=== PATIENT | female | born 1995 | race Caucasian/White ===

== ENCOUNTER 2017-07-22 16:49 | Inpatient (IN) ==
[2017-07-22] MEDS ORDERED: Ipratropium/Albuterol Neb 3 ML IH SCH (17:00)
[2017-07-22] MEDS ORDERED: Magnesium Sulfate 1 GM in 0.9 % Sodium Chloride 50 ML IVPB ONE (17:00)
[2017-07-22] MEDS ORDERED: methylPREDNISolone 125 MG/2 ML VIAL IVP ONE (17:00)
--- NOTE | 2017-07-22 17:21 | Emergency Department Note ---
Disposition Clinical Impression: Asthma with exacerbation Disposition: Still a Patient Condition: Fair Referrals: Mallory Matos BOTTLING ATTENDANT [Primary Care Provider] - Forms: ED Satisfaction Letter SOB HPI - General Chief Complaint: ED Shortness of Breath/Dyspnea Stated Complaint: KASIE Time Seen by Provider: 07/22/17 16:56 Source: patient Mode of arrival: ambulatory Limitations: no limitations Nursing Notes Reviewed: Yes Vital Signs Reviewed: Yes - History of Present Illness Patient presents to the ED with the chief complaint of "my asthma is acting up. " Patient has a history of asthma, never requiring BiPAP admission or intubation. States she has been sick for the last 3 days with an upper respiratory infection that has now moved down into her chest. States her wheezing got worse today. Has medications at home but has not been using them. Boris and other close family members have been sick as well. Complains of some chest tightness from coughing so much. She is just now starting to have some productive sputum, but had not previously. No history of DVT, PE or malignancy. - Related Data Home Medications Medication Instructions Recorded Confirmed Flovent Hfa 10/23/15 Ventolin Hfa 10/23/15 10/23/15 Allergies Allergy/AdvReac Type Severity Reaction Status Date / Time No Known Allergies Allergy Verified 10/23/15 19:14 All systems ED: reviewed and negative except as stated. Constitutional: Denies: fever ENT ED: Reports: congestion. Denies: throat pain Cardiovascular: Reports: chest pain, dyspnea on exertion Respiratory: Reports: dyspnea Gastrointestinal: Denies: abdominal pain, vomiting Integumentary: Denies: rash Past Medical History - Past Medical History Attestation: Yes The following information was validated with the patient. Source: patient Medical history: Reports: asthma, GERD - Social History Smoking Status: Never smoker Smokeless Tobacco Status: No Alcohol use: Reports: none Drug use: Reports: none Physical Exam - General Limitations: no limitations General appearance: alert, in no apparent distress - Chest Chest inspection: Present: normal inspection, symmetric chest wall rise - Respiratory Respiratory exam: Present: respiratory distress (mild ), wheezes (Throughout all lung mckeon). Absent: normal lung sounds bilaterally - Cardiovascular Cardiovascular exam: Present: normal rhythm, tachycardia, normal heart sounds. Absent: regular rate - Abdominal Exam Abdominal exam: Present: soft, Non-Tender. Absent: tenderness, distention, guarding, rebound, rigidity - Extremities Exam Extremities exam: Present: normal inspection, full ROM. Absent: tenderness, pedal edema - Neurological Exam Neurological exam: Present: alert, oriented X3 - Psychiatric Psychiatric exam: Present: normal affect, normal mood - Skin Skin exam: Present: warm, dry, intact, normal color Course Course Narrative: 22 -year-old female with history of asthma presenting with apparent asthma exacerbation. We will check labs do not steroids, magnesium. Disposition pending. Vital Signs Temperature 98.0 F 07/22/17 16:50 Pulse Rate 154 07/22/17 16:50 Respiratory Rate 26 07/22/17 16:50 Blood Pressure 135/95 07/22/17 16:50 O2 Sat by Pulse Oximetry 88 07/22/17 16:50 Temperature 98.0 F 07/22/17 16:50 Pulse Rate 116 07/22/17 18:17 Respiratory Rate 24 07/22/17 18:17 Blood Pressure 115/80 07/22/17 18:17 O2 Sat by Pulse Oximetry 86 07/22/17 18:17 Oxygen Delivery Oxygen Delivery Nasal Cannula Shortness of Breath/Dyspnea - Medical Records Medical records reviewed: Yes I reviewed the patient's medical records. - Lab Data Lab results reviewed: Yes I reviewed the patient's lab results. Result diagrams: 07/22/17 17:27 07/22/17 17:27 Lab Results 07/22/17 07/22/17 07/22/17 Range/Units 17:27 17:27 17:27 WBC 16.7 H (4.3-11.1) K/mcL RBC 5.31 H (3.82-4.97) M/mcL Hgb 13.9 (11.5-15.4) g/dL Hct 42.8 (35.3-44.9) % MCV 80.6 L (83.0-100.0) fL MCH 26.2 L (28.0-33.3) pg MCHC 32.5 (31.6-35.5) g/dL RDW 14.8 H (11.5-14.5) % Plt Count 257 (140-400) K/mcL MPV 10.6 (9.4-12.4) fL Immature Gran % 0.3 (0-4) % Seg Neutrophils % 83.3 % Lymphocytes % 8.9 % Monocytes % 4.1 % Eosinophils % 3.0 % Basophils % 0.4 % Neutrophils # 13.9 H (1.6-8.9) K/mcL Lymphocytes # 1.5 (0.6-4.6) K/mcL Monocytes # 0.7 (0.0-1.3) K/mcL Eosinophils # 0.5 (0.0-0.6) K/mcL Basophils # 0.1 (0.0-0.2) K/mcL D-Dimer 1092 H (0-500) ng/mLFEU Sodium 139 (136-145) mEq/L Potassium 3.4 L (3.5-4.5) mEq/L Chloride 107 (98-109) mEq/L Carbon Dioxide 23 (19-29) mEq/L BUN 9 (7-20) mg/dL Creatinine 0.66 (0.57-1.11) mg/dL Est GFR ( Amer) > 60 (> 60) Est GFR (Non-Af Amer) > 60 (> 60) BUN/Creatinine Ratio 14 (6-26) Glucose 121 H (70-99) mg/dL Calculated Osmolality 288 (280-300) Calcium 8.8 (8.6-10.8) mg/dL - Radiology Data Radiology results reviewed: Yes I reviewed the patient's radiology results. Chest X-Ray 07/22/17 17:04 IMPRESSION: No acute disease. D/ / Susu Barrera Cha, MD / Susu Barrera Cha, MD Interpreting Provider: Susu Barrera Cha, MD - EKG Data EKG attestation: Yes I reviewed and interpreted this EKG. EKG results narrative: Sinus tach, rate 136, DC interval 141, QRS 96, QTC 377, normal axis, no acute ischemic changes S.B.A.R. - S.B.A.R. Situation: Demographics, MOA Background: Presenting Complaint, Relevant PMH, Meds, & Allergies Assessment: Vital Signs, Course and respsone to treatment, Exam Concerns, Patient/Family Expectation, Pertinant Lab Results, Outstanding Labs Recommendation: Barrier(s) to disposition, Recommendation based on pending studies, treatments, or consults S.B.A.R. Report Given to: Wilman Kilgore Repor Time: 18:44
[2017-07-22 17:36] LABS: Basophils # 0.1 K/mcL (0.0-0.2); Basophils % 0.4 %; Eosinophils # 0.5 K/mcL (0.0-0.6); Hematocrit 42.8 % (35.3-44.9); Hemoglobin 13.9 g/dL (11.5-15.4); Immature Granulocytes % 0.3 % (0-4); Lymphocytes # 1.5 K/mcL (0.6-4.6); Lymphocytes % 8.9 %; Mean Corpuscular HGB Conc 32.5 g/dL (31.6-35.5); Mean Corpuscular Hemoglobin 26.2 pg (28.0-33.3); Mean Corpuscular Volume 80.6 fL (83.0-100.0); Mean Platelet Volume 10.6 fL (9.4-12.4); Monocytes # 0.7 K/mcL (0.0-1.3); Monocytes % 4.1 %; Neutrophils # 13.9 K/mcL (1.6-8.9); Platelet Count 257 K/mcL (140-400); Red Blood Count 5.31 M/mcL (3.82-4.97); Red Cell Distribution Width 14.8 % (11.5-14.5); Segmented Neutrophils % 83.3 %
[2017-07-22 17:48] LABS: BUN/Creatinine Ratio 14 (6-26); Blood Urea Nitrogen 9 mg/dL (7-20); Calcium 8.8 mg/dL (8.6-10.8); Carbon Dioxide 23 mEq/L (19-29); Chloride 107 mEq/L (98-109); Glucose 121 mg/dL (70-99); Osmolality,Calculated 288 (280-300); Potassium 3.4 mEq/L (3.5-4.5); Sodium 139 mEq/L (136-145); eGFR For African Americans > 60 (> 60); eGFR For Non-African Americans > 60 (> 60)
--- NOTE | 2017-07-22 18:04 | Emergency Department Note ---
START Narrative - START START: I examined this patient and my medical decision-making was reviewed with the Resident Physician. I agree with the documented findings, disposition and treatment plan as described except to the extent set forth below. 22 year old female with HX of asthma presents to the ED with complaitns of dyspnea and has had breathign trestments at home with a tachycardia with a rate from the 120-140s sinus. Patient has wheezing in all mckeon. We will do breathing tremtents. D-dimer is postive an we will obtain a CTA chest to r/o PE.
[2017-07-22] MEDS ORDERED: 0.9 % Sodium Chloride 1,000 ML IVC ONE (18:19)
[2017-07-22] MEDS ORDERED: Ondansetron 4 MG/2 ML VIAL IVP ONE (18:20)
[2017-07-22] MEDS ORDERED: Albuterol 2.5 MG/3 ML NEBULIZER IH ONE (19:16)
--- NOTE | 2017-07-22 19:24 | Emergency Department Note ---
Disposition Clinical Impression: Hypoxia Asthma with exacerbation Qualifiers: Asthma severity: moderate Asthma persistence: persistent Qualified Code(s): J45.41 - Moderate persistent asthma with (acute) exacerbation Pneumonia Qualifiers: Pneumonia type: due to Pneumococcus Laterality: right Lung location: lower lobe of lung Qualified Code(s): J13 - Pneumonia due to Streptococcus pneumoniae Disposition: Admitted As Inpatient Condition: Undetermined SOB HPI - General Chief Complaint: ED Shortness of Breath/Dyspnea Stated Complaint: KASIE Time Seen by Provider: 07/22/17 16:56 Source: patient Mode of arrival: ambulatory Limitations: no limitations Nursing Notes Reviewed: Yes Vital Signs Reviewed: Yes - History of Present Illness 22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 The patient has a history of asthma. She states she has had an upper respiratory like infection over the course of the past 3-4 days with everybody at home with similar complaints. She states that she has not been compliant with her asthma medications and states that she became short of breath over the course of the past 48 hours. The patient arrives to the emergency department very tachypneic and was mildly hypoxic with an O2 saturation of 89% on 2 L nasal cannula. At that time the patient had a full workup here in the emergency department with labs and pending CTA of the chest for elevated d- dimer. The patient was noted to have hypoxia with some relief of her symptoms with 3 DuoNeb as well as IV magnesium. The patient all show received steroids. The patient is still mildly tachypneic in the room with some wheezing on auscultation during evaluation after signout. The patient is on oxygen mask with an O2 saturation of 94% at this time. She is able to speak in full sentences without any accessory muscle use. She denies any other complaints at this time other than just generally feeling tired. Pt Subjective Complaint: shortness of breath Onset (ago): day(s) (2) Known history of: asthma Treatment prior to arrival: oxygen Cough present: Yes Sputum production: No - Related Data Home oxygen amount: none Home Medications Medication Instructions Recorded Confirmed Flovent Hfa 10/23/15 Ventolin Hfa 10/23/15 10/23/15 Ranitidine HCl [Acid Ingot Passer] 150 mg PO HS 07/22/17 07/22/17 Allergies Allergy/AdvReac Type Severity Reaction Status Date / Time No Known Allergies Allergy Verified 10/23/15 19:14 All systems ED: reviewed and negative except as stated. Constitutional: Denies: fever ENT ED: Reports: congestion. Denies: throat pain Cardiovascular: Reports: chest pain, dyspnea on exertion Respiratory: Reports: cough, dyspnea, wheezes. Denies: sputum production Gastrointestinal: Denies: abdominal pain, vomiting Integumentary: Denies: rash Past Medical History - Past Medical History Attestation: Yes The following information was validated with the patient. Source: patient Medical history: Reports: asthma, GERD - Social History Smoking Status: Never smoker Smokeless Tobacco Status: No Alcohol use: Reports: none Drug use: Reports: none Physical Exam - General Limitations: no limitations General appearance: alert, in no apparent distress - Head Head exam: atraumatic, normocephalic, normal inspection - Eye Eye exam: Present: normal appearance, PERRL, EOMI - ENT ENT exam: normal exam, normal oropharynx, mucous membranes moist - Neck Neck exam: Present: normal inspection, full ROM, trachea midline - Chest Chest inspection: Present: normal inspection, symmetric chest wall rise - Respiratory Respiratory exam: Present: wheezes. Absent: respiratory distress, accessory muscle use - Cardiovascular Cardiovascular exam: Present: normal rhythm, tachycardia, normal heart sounds - Abdominal Exam Abdominal exam: Present: soft, Non-Tender. Absent: tenderness, distention, guarding, rebound, rigidity - Extremities Exam Extremities exam: Present: normal inspection, full ROM. Absent: tenderness, pedal edema Course Vital Signs Temperature 98.0 F 07/22/17 16:50 Pulse Rate 154 07/22/17 16:50 Respiratory Rate 26 07/22/17 16:50 Blood Pressure 135/95 07/22/17 16:50 O2 Sat by Pulse Oximetry 88 07/22/17 16:50 Temperature 98.3 F 07/23/17 03:21 Pulse Rate 115 07/23/17 03:21 Respiratory Rate 20 07/23/17 04:20 Blood Pressure 136/83 07/23/17 04:20 O2 Sat by Pulse Oximetry 91 07/23/17 04:20 Oxygen Delivery Oxygen Delivery Oximizer Shortness of Breath/Dyspnea - MDM Narrative Medical decision making narrative: Workup here in the emergency department demonstrates findings consistent with multifocal pneumonia on CTA of the patient's chest. The patient was noted to be hypoxic multiple times in the emergency Department has required oxygen mask. We will begin the patient on Levaquin and Rocephin. The patient will be admitted to the hospitalist service, accepted by Dr. Pedraza. Hospitalist requested an EKG. We will perform. We will notify her of any major abnormalities noted. - Lab Data Lab results reviewed: Yes I reviewed the patient's lab results. Result diagrams: 07/22/17 17:27 07/22/17 17:27 Lab Results 07/22/17 07/22/17 07/22/17 Range/Units 17:27 17:27 17:27 WBC 16.7 H (4.3-11.1) K/mcL RBC 5.31 H (3.82-4.97) M/mcL Hgb 13.9 (11.5-15.4) g/dL Hct 42.8 (35.3-44.9) % MCV 80.6 L (83.0-100.0) fL MCH 26.2 L (28.0-33.3) pg MCHC 32.5 (31.6-35.5) g/dL RDW 14.8 H (11.5-14.5) % Plt Count 257 (140-400) K/mcL MPV 10.6 (9.4-12.4) fL Immature Gran % 0.3 (0-4) % Seg Neutrophils % 83.3 % Lymphocytes % 8.9 % Monocytes % 4.1 % Eosinophils % 3.0 % Basophils % 0.4 % Neutrophils # 13.9 H (1.6-8.9) K/mcL Lymphocytes # 1.5 (0.6-4.6) K/mcL Monocytes # 0.7 (0.0-1.3) K/mcL Eosinophils # 0.5 (0.0-0.6) K/mcL Basophils # 0.1 (0.0-0.2) K/mcL D-Dimer 1092 H (0-500) ng/mLFEU Sodium 139 (136-145) mEq/L Potassium 3.4 L (3.5-4.5) mEq/L Chloride 107 (98-109) mEq/L Carbon Dioxide 23 (19-29) mEq/L BUN 9 (7-20) mg/dL Creatinine 0.66 (0.57-1.11) mg/dL Est GFR ( Amer) > 60 (> 60) Est GFR (Non-Af Amer) > 60 (> 60) BUN/Creatinine Ratio 14 (6-26) Glucose 121 H (70-99) mg/dL Calculated Osmolality 288 (280-300) Calcium 8.8 (8.6-10.8) mg/dL Troponin I (0-0.03) ng/mL Serum , Qual (Negative) 07/22/17 07/22/17 Range/Units 17:27 17:27 WBC (4.3-11.1) K/mcL RBC (3.82-4.97) M/mcL Hgb (11.5-15.4) g/dL Hct (35.3-44.9) % MCV (83.0-100.0) fL MCH (28.0-33.3) pg MCHC (31.6-35.5) g/dL RDW (11.5-14.5) % Plt Count (140-400) K/mcL MPV (9.4-12.4) fL Immature Gran % (0-4) % Seg Neutrophils % % Lymphocytes % % Monocytes % % Eosinophils % % Basophils % % Neutrophils # (1.6-8.9) K/mcL Lymphocytes # (0.6-4.6) K/mcL Monocytes # (0.0-1.3) K/mcL Eosinophils # (0.0-0.6) K/mcL Basophils # (0.0-0.2) K/mcL D-Dimer (0-500) ng/mLFEU Sodium (136-145) mEq/L Potassium (3.5-4.5) mEq/L Chloride (98-109) mEq/L Carbon Dioxide (19-29) mEq/L BUN (7-20) mg/dL Creatinine (0.57-1.11) mg/dL Est GFR ( Amer) (> 60) Est GFR (Non-Af Amer) (> 60) BUN/Creatinine Ratio (6-26) Glucose (70-99) mg/dL Calculated Osmolality (280-300) Calcium (8.6-10.8) mg/dL Troponin I 0.01 (0-0.03) ng/mL Serum , Qual Negative (Negative) - Radiology Data Radiology results reviewed: Yes I reviewed the patient's radiology results. - EKG Data EKG attestation: Yes I reviewed and interpreted this EKG. EKG results narrative: EKG #1 performed at 1704 Heart rate 1 36 bpm. MA interval 141 ms. QTC 377 ms. Sinus tachycardia. No ST elevation or ST depression noted. No acute changes noted. EKG #2: Heart rate 1 24 bpm. MA interval 147 ms. QTC 49 ms. Sinus tachycardia. Laceration ST depression noted. No acute changes noted other than sinus tachycardia. Attestation Statement - Attestation Attestation: I examined this patient and my medical decision-making was reviewed with the Resident Physician. I agree with the documented findings, disposition and treatment plan as described except to the extent set forth below. Patient to the ED with shortness of breath. Signed out pending CTA chest. CTA negative for PE but she does have a FOCAL pneumonia. She is hypoxic. Admitted to medicine. 35 minutes of critical care exclusive several procedures.
[2017-07-22] MEDS ORDERED: Levofloxacin 750 MG/150 ML 750 MG/150 ML BAG IVPB STA (19:44)
[2017-07-22] MEDS ORDERED: cefTRIAXone 1,000 MG in Water for inj. (sterile) 10 ML IVP ONE (19:44)
[2017-07-22] MEDS ORDERED: Naloxone 0.4 MG/ML INJ IVP PRN (20:53)
[2017-07-22] MEDS ORDERED: Ipratropium/Albuterol Neb 3 ML IH PRN (20:57)
--- NOTE | 2017-07-22 21:05 | Internal Med History&Physical ---
Date of Encounter: 07/22/17 Time of Encounter: 20:00 Assessment and Plan (1) DVT prophylaxis Current visit: Yes Status: Acute Heparin subcutaneously (2) BARON on CPAP Current visit: Yes Status: Acute Continue CPAP during night (3) Asthma with exacerbation Current visit: Yes Status: Acute Patient has history of asthma. With daily attack. Without about once a week night attended. Consider mild to moderate persistent asthma. Patient has asthma exacerbation this time - Place patient on antibiotic, steroid, and bronchodilator. - Add Symbicort twice a day - Closely monitor patient Qualifiers: Asthma severity: moderate Asthma persistence: persistent Qualified Code(s ): J45.41 - Moderate persistent asthma with (acute) exacerbation (4) Hypoxia Current visit: Yes Status: Acute Due to pneumonia and asthma exacerbation. Oxygen supportive treatment. Continuous pulse oximetry monitoring. Treat underlying disease. (5) Pneumonia Current visit: Yes Status: Acute CTA shows right lower lobe pneumonia. Patient has elevated WBC. Consider community-acquired pneumonia. Will treat patient with Levaquin. Follow-up of blood and sputum culture Qualifiers: Pneumonia type: due to Pneumococcus Laterality: right Lung location: lower lobe of lung Qualified Code(s): J13 - Pneumonia due to Streptococcus pneumoniae Internal Medicine - H&P: HPI Chief complaint: Shortness of breath Admitted From: Home Plans for Post Hospital Care: Home History of present illness: Ms. Sinha is a 22 year old female with history of asthma and BARON present to ER for shortness of breath since yesterday. Patient said she started to have stuffed nose since yesterday. She started to have shortness of breath from today and have to quit from work today. Patient tried inhaler but it does not work. Patient denies sore throat, fever, nausea, vomiting, or chest pain. She has cough with yellowish sputum. Patient has a history of asthma without history of hospitalization or intubation. She was treated with magnesium, DuoNeb, Levaquin and Solumendrol in emergency room. Her symptoms has improved after treatment. Past Med Surg Social Fam HX - Past Medical History Medical history: asthma, GERD - Social History Smoking Status: Never smoker Smokeless Tobacco Status: No Alcohol use: none Drug use: none - Family History Mother History Unknown: Yes Internal Medicine - H&P: Meds Flovent Hfa 10/23/15 [History] Ventolin Hfa 10/23/15 [History] 3 Allergy/AdvReac Type Severity Reaction Status Date / Time No Known Allergies Allergy Verified 10/23/15 19:14 All Systems PM: A 10-system review of systems was performed and is negative for pertinent findings except as documented above in the HPI. - Constitutional Vitals: Temp Pulse Resp BP Pulse Ox 98.0 F 130 24 132/59 90 07/22/17 16:50 07/22/17 20:21 07/22/17 20:21 07/22/17 20:21 07/22/17 20:21 General appearance: Present: mild distress, A&O X 3, answers questions appropriately - Head Head exam: Present: atraumatic, normocephalic - Eye Eye exam: Present: PERRL, conjuntiva pink, sclera anicteric Pupils: Present: PERRL - Neck Neck exam general surgery: Present: supple, trachea midline. Absent: lymphadenopathy - Respiratory Respiratory exam: Present: CTAB. Absent: accessory muscle use, rales, rhonchi, wheezes - Cardiovascular Cardiovascular exam: Present: RRR, +S1, +S2. Absent: diastolic murmur, gallop, rubs, systolic murmur - GI/Abdominal GI/Abdominal exam: Present: normal bowel sounds, soft, no peritoneal signs. Absent: distended, tenderness - Extremities Exam Extremities exam: Present: warm, radial pulses palpable and symmetrical. Absent : calf tenderness, cyanotic, pedal edema - Neurological Exam Neurological exam: Present: CN II-XII intact, oriented X3, no focal deficits. Absent: pronater drift, facial droop, speech deficit - Skin Skin exam: Present: dry, intact Internal Med - H&P Results - Labs CBC & Chem 7: 07/22/17 17:27 07/22/17 17:27 - EKG Data -: EKG Interpreted by Myself EKG shows normal: sinus rhythm Rate: tachycardia
[2017-07-22] MEDS: Ipratropium/Albuterol Neb 3 ML IH SCH (22:38)
[2017-07-22] MEDS: Budesonide/Formoterol 160/4.5 MDI IH SCH (22:38)
[2017-07-22] MEDS: 0.9 % Sodium Chloride 1,000 ML IVC SCH (23:09)
[2017-07-22] MEDS: methylPREDNISolone 125 MG/2 ML VIAL IVP SCH (23:11)
[2017-07-22] MEDS: Famotidine 20 MG TABLET PO SCH (23:58)
[2017-07-23] MEDS ORDERED: methylPREDNISolone 125 MG/2 ML VIAL IM SCH
[2017-07-23] MEDS: Ipratropium/Albuterol Neb 3 ML IH SCH ×5 (04:20→20:58)
[2017-07-23] MEDS: 0.9 % Sodium Chloride 1,000 ML IVC SCH (04:22)
[2017-07-23] MEDS: *HR* Heparin 5,000 UNIT/ML VIAL SQ SCH ×2 (06:20→17:10)
[2017-07-23] MEDS: methylPREDNISolone 125 MG/2 ML VIAL IVP SCH ×4 (06:20→23:25)
[2017-07-23] MEDS: Acetaminophen 325 MG TABLET PO PRN ×2 (06:21→14:04)
[2017-07-23 06:31] LABS: Basophils % 0.1 %; Hematocrit 42.8 % (35.3-44.9); Hemoglobin 13.5 g/dL (11.5-15.4); Immature Granulocytes % 0.8 % (0-4); Mean Corpuscular HGB Conc 31.5 g/dL (31.6-35.5); Mean Corpuscular Hemoglobin 26.2 pg (28.0-33.3); Mean Corpuscular Volume 83.1 fL (83.0-100.0); Mean Platelet Volume 11.5 fL (9.4-12.4); Monocytes # 0.2 K/mcL (0.0-1.3); Monocytes % 1.7 %; Neutrophils # 12.9 K/mcL (1.6-8.9); Platelet Count 271 K/mcL (140-400); Red Blood Count 5.15 M/mcL (3.82-4.97); Red Cell Distribution Width 15.1 % (11.5-14.5); Segmented Neutrophils % 90.4 %
[2017-07-23 06:51] LABS: BUN/Creatinine Ratio 14 (6-26); Blood Urea Nitrogen 9 mg/dL (7-20); Calcium 8.9 mg/dL (8.6-10.8); Carbon Dioxide 22 mEq/L (19-29); Chloride 112 mEq/L (98-109); Glucose 163 mg/dL (70-99); Magnesium 2.2 mg/dL (1.6-2.6); Osmolality,Calculated 296 (280-300); Potassium 4.4 mEq/L (3.5-4.5); Sodium 142 mEq/L (136-145); eGFR For African Americans > 60 (> 60); eGFR For Non-African Americans > 60 (> 60)
[2017-07-23] MEDS ORDERED: Albuterol 2.5 MG/3 ML NEBULIZER IH SCH ×2 (10:00→12:00)
--- NOTE | 2017-07-23 10:08 | Internal Med Progress Note ---
<Rogerio Lovett - Last Filed: 07/23/17 12:34> Date of Encounter: 07/23/17 Time of Encounter: 07:30 - Assessment and plan (1) Pneumonia Current Visit: Yes Status: Acute Assessment and plan: Viral PCR positive; placed patient on droplet precautions and informed RN Continue Levaquin daily pending cultures sputum culture pending; may tailor antibiotics pending sensitivity report started patient on Mucinex start/continue oxygen, nebulizer treatments, incentive spirometry, and flutter valve Qualifiers: Pneumonia type: due to Pneumococcus Laterality: right Lung location: lower lobe of lung Qualified Code(s): J13 - Pneumonia due to Streptococcus pneumoniae (2) Asthma with exacerbation Current Visit: Yes Status: Acute Assessment and plan: History of severe asthma with frequent attacks patient is inconsistently compliant with medical regimen; she is also exposed to triggers such as pet dander and cigarette smoke has scattered inspiratory and expiratory wheezes on exam; is not in current apparent respiratory distress on aforementioned oxygen supplementation rescheduled nebulizer treatments to albuterol Q2 PRN and duo q4 scheduled for the time being spoke with respiratory therapy; will initiate incentive spirometry and flutter valve Qualifiers: Asthma severity: moderate Asthma persistence: persistent Qualified Code(s ): J45.41 - Moderate persistent asthma with (acute) exacerbation (3) Hypoxia Current Visit: Yes Status: Acute Assessment and plan: Patient continues to be hypoxic requiring high flow oxygen by nasal cannula plans as above (4) BARON on CPAP Current Visit: Yes Status: Chronic Assessment and plan: CPAP at night (5) DVT prophylaxis Current Visit: Yes Status: Acute Assessment and plan: Continue subcutaneous heparin - Time Spent With Patient less than 15 minutes - Subjective Interval history: Continues to be hypoxic requiring 12 L flow oxygen via nasal cannula to sustain saturations within the 90s. At bedside, patient is in no overt respiratory distress. Patient speaks whole sentences without any interruptions. No fevers overnight. No acute complaints. Respiratory infection panel and sputum culture are pending. Will expand approach towards patient's respiratory status. - Constitutional Vitals: Temp Pulse Resp BP Pulse Ox 98.1 F 100 22 152/92 95 07/23/17 07:28 07/23/17 07:33 07/23/17 07:28 07/23/17 07:28 07/23/17 07:28 General appearance: Present: mild distress, A&O X 3, answers questions appropriately Exam: CONSTITUTIONAL: Alert and oriented X3, well-nourished, well appearing, in no apparent distress HEAD: Normocephalic; atraumatic. EYES: PERRL, no scleral icterus. NOSE: The nose is normal in appearance without rhinorrhea RESP: on high flow oxygen by nasal cannula; in no apparent respiratory distress ; does have inspiratory and expiratory wheezes throughout lung mckeon without evidence of consolidation on auscultation CARD: Regular rhythm, without murmurs, rub or gallop ABD: Non-distended; non-tender, soft,without rigidity, rebound or guarding SKIN: Normal for age and race; warm and dry; no apparent lesions Internal Medicine: Result - Labs CBC & Chem 7: 07/23/17 05:42 07/23/17 05:42 Labs: Short CBC 07/23/17 Range/Units 05:42 WBC 14.3 H (4.3-11.1) K/mcL Hgb 13.5 (11.5-15.4) g/dL Hct 42.8 (35.3-44.9) % Plt Count 271 (140-400) K/mcL Neutrophils # 12.9 H (1.6-8.9) K/mcL BMP 07/23/17 05:42 Sodium 142 Potassium 4.4 D Chloride 112 H Carbon Dioxide 22 BUN 9 Creatinine 0.65 Glucose 163 H Calcium 8.9 - ABG Interpretation ABG results: PT/INR, D-dimer D-Dimer 1092 ng/mLFEU (0-500) H 07/22/17 17:27 Consult Discharge Plan - Plan Referrals: Mallory Matos B[employer] GUARD [Primary Care Provider] - <Jonatan Christopher - Last Filed: 07/23/17 17:01> Date of Encounter: 07/23/17 - Assessment and plan (1) Acute respiratory failure with hypoxia Current Visit: Yes Status: Acute Assessment and plan: Weaning oxygen as able. Remains on high flow mask. (2) Asthma with exacerbation Current Visit: Yes Status: Acute Qualifiers: Asthma severity: moderate Asthma persistence: persistent Qualified Code(s ): J45.41 - Moderate persistent asthma with (acute) exacerbation (3) Pneumonia Current Visit: Yes Status: Acute Qualifiers: Pneumonia type: due to Pneumococcus Laterality: right Lung location: lower lobe of lung Qualified Code(s): J13 - Pneumonia due to Streptococcus pneumoniae (4) BARON on CPAP Current Visit: Yes Status: Chronic - Time Spent With Patient My time was 38min - Constitutional Vitals: Temp Pulse Resp BP Pulse Ox 98.7 F 124 20 158/79 90 07/23/17 15:18 07/23/17 15:18 07/23/17 16:38 07/23/17 15:18 07/23/17 16:38 Internal Medicine: Result - Labs CBC & Chem 7: 07/23/17 05:42 07/23/17 05:42 Labs: Short CBC 07/23/17 Range/Units 05:42 WBC 14.3 H (4.3-11.1) K/mcL Hgb 13.5 (11.5-15.4) g/dL Hct 42.8 (35.3-44.9) % Plt Count 271 (140-400) K/mcL Neutrophils # 12.9 H (1.6-8.9) K/mcL BMP 07/23/17 05:42 Sodium 142 Potassium 4.4 D Chloride 112 H Carbon Dioxide 22 BUN 9 Creatinine 0.65 Glucose 163 H Calcium 8.9 - ABG Interpretation ABG results: PT/INR, D-dimer D-Dimer 1092 ng/mLFEU (0-500) H 07/22/17 17:27 - Attending Attestation I examined this patient and my medical decision-making was reviewed with the Resident Physician on 07/23/17. I agree with the documented findings, disposition and treatment plan as described except to the extent set forth below. Ms Sinha is currently in observation for multifocal pneumonia and asthma exacerbation. Her RIP is positive for rhinovirus. She is moderate to high risk due to potential for worsening respiratory status. Ms Sinha is having trouble sitting up due to congestion. Having a lot of coughing and sinus drainage. RIP has rhinovirus. She remains on high flow oxygen. No fever or chills at this time. Eating OK. No GI issues. Exam Alert. Mod distress due to coughing. Mucus membranes dry Heart tachy and regular Lungs with diffuse insp and exp wheeze Abd soft No edema I/P 1. Hypoxia 2. Asthma 3. Viral pneumonia Further diagnoses and plan as above.
[2017-07-23] MEDS ORDERED: Albuterol 2.5 MG/3 ML NEBULIZER IH PRN (10:21)
[2017-07-23 10:40] LABS: Adenovirus Not Detected (Not Detect); Bordetella Pertussis Not Detected (Not Detect); Chlamydophila pneumoniae Not Detected (Not Detect); Coronavirus 229E Not Detected (Not Detect); Coronavirus HKU1 Not Detected (Not Detect); Coronavirus NL63 Not Detected (Not Detect); Coronavirus OC43 Not Detected (Not Detect); Human Metapneumovirus Not Detected (Not Detect); Human Rhinovirus/Enterovirus ***DETECTED*** (Not Detect); Influenza A Subtype 2009 H1 Not Detected (Not Detect); Influenza A Untypeable Not Detected (Not Detect); Influenza B Not Detected (Not Detect); Mycoplasma pneumoniae Not Detected (Not Detect); Parainfluenza Virus 1 Not Detected (Not Detect); Parainfluenza Virus 2 Not Detected (Not Detect); Parainfluenza Virus 3 Not Detected (Not Detect); Parainfluenza Virus 4 Not Detected (Not Detect); Respiratory Syncytial Virus Not Detected (Not Detect)
[2017-07-23] MEDS: Budesonide/Formoterol 160/4.5 MDI IH SCH ×2 (10:40→20:58)
--- NOTE | 2017-07-23 17:49 | Electrocardiograph Report ---
[address] [address] Test Date: 2017-07-22 Pat Name: Teagan Sinha Department: 104 Room: 01 Gender: F Claims Adjuster Supervisor: LOTTIE : 1995 Requested By: Kristian Stovall Order Number: [id number] Reading MD: Magdalena Erickson Measurements Intervals [place] Rate: 124 P: 62 PA: 147 QRS: 54 QRSD: 98 T: 30 QT: 335 QTc: 409 Interpretive Statements SINUS TACHYCARDIA ABNORMAL RHYTHM ECG Electronically Signed On 07-23-2017 17:47:21 EST by Magdalena Erickson
--- NOTE | 2017-07-23 20:01 | Electrocardiograph Report ---
[address] [address] Test Date: 2017-07-22 Pat Name: Teagan Sinha Department: 104 Room: 2N01 Gender: F Business Loan Processor: TI : 1995 Requested By: Jonatan Christopher Order Number: [id number] Reading MD: Michoacano Mckay MD Measurements Intervals [place] Rate: 136 P: 75 NC: 141 QRS: 76 QRSD: 96 T: 47 QT: 297 QTc: 377 Interpretive Statements SINUS TACHYCARDIA Electronically Signed On 07-23-2017 20:00:20 EST by Michoacano Mckay MD
[2017-07-23] MEDS: Levofloxacin 750 MG/150 ML 750 MG/150 ML BAG IVPB SCH (20:18)
[2017-07-23] MEDS: Famotidine 20 MG TABLET PO SCH (20:19)
[2017-07-24] MEDS: Ipratropium/Albuterol Neb 3 ML IH SCH ×7 (00:46→23:14)
[2017-07-24] MEDS: methylPREDNISolone 125 MG/2 ML VIAL IVP SCH ×4 (06:10→23:56)
[2017-07-24] MEDS: *HR* Heparin 5,000 UNIT/ML VIAL SQ SCH ×2 (06:11→16:50)
[2017-07-24] MEDS: Budesonide/Formoterol 160/4.5 MDI IH SCH ×2 (08:27→20:13)
--- NOTE | 2017-07-24 08:37 | Internal Med Progress Note ---
<Daniel Berry - Last Filed: 07/24/17 13:56> Date of Encounter: 07/24/17 Time of Encounter: 08:00 - Assessment and plan (1) Asthma with exacerbation Current Visit: Yes Status: Acute Assessment and plan: Patient has known history of asthma with frequent attacks. Reports inconsistant compliance with medical regimen. Uses albuterol inhaler at home. Exposed to triggers like pet dander and cigarette smoke. Patient reported no respiratory distress this morning. Plan: -High flow O2 via NC -Albuterol neb 2.5 Q2 PRN -DuoNeb 3 mL Q4 PRN -Incentive spirometry and flutter valve Qualifiers: Asthma severity: moderate Asthma persistence: persistent Qualified Code(s ): J45.41 - Moderate persistent asthma with (acute) exacerbation (2) Pneumonia Current Visit: Yes Status: Acute Assessment and plan: Chest CTA (07/22/17): Demonstrated multifocal pneumonia predominantly involving RLL. Viral PCR (07/23/17): positive for entero/rhino. Patient on droplet precautions. Sputum culture is pending; may adjust antibiotics depending on sensitivity report. WC on admission was 16.7; decreased to 14.3 on 07/23/17. Plan: -IV Levaquin 750 Q24; started on 07/23/17 (day 2 of abx) -Mucinex 600 mg PO BID PRN. Qualifiers: Pneumonia type: due to Pneumococcus Laterality: right Lung location: lower lobe of lung Qualified Code(s): J13 - Pneumonia due to Streptococcus pneumoniae (3) Hypoxia Current Visit: Yes Status: Acute Assessment and plan: Patient's O2 saturation this morning was 90. -High flow oxygen via nasal cannula. (4) DVT prophylaxis Current Visit: Yes Status: Acute Assessment and plan: Heparin 5000 sq Q12. (5) BARON on CPAP Current Visit: Yes Status: Chronic Assessment and plan: Patient on CPAP at night - Subjective Interval history: Patient was seen and examined at bedside this morning. Patient reports that her breathing has improved since admission. She denies any productive cough. She had no difficulty sleeping last night. Her only complaints morning is that she has some chest pain on deep inspiration. She currently denies any fever, chills, nasal discharge, or shortness of breath. Patient is currently on high flow oxygen via nasal cannula. - Constitutional Vitals: Temp Pulse Resp BP Pulse Ox 98.1 F 91 16 138/84 90 07/24/17 06:56 07/24/17 07:41 07/24/17 08:27 07/24/17 06:56 07/24/17 08:27 General appearance: Present: A&O X 3, no acute distress, answers questions appropriately - Head Head exam: Present: atraumatic, normal inspection, normocephalic - ENT ENT exam: Present: mucous membranes moist, normal exam - Neck Neck exam general surgery: Present: full ROM, normal inspection - Respiratory Respiratory exam: Present: wheezes. Absent: rales, rhonchi, stridor, tachypnea Additional comments: There is mild wheezing present on inspiration, predominantly in the upper lung mckeon. - Expanded Respiratory Exam Location: wheezes: Left, Right, Upper - Cardiovascular Cardiovascular exam: Present: RRR, +S1, +S2. Absent: diastolic murmur, irregular rhythm, JVD, tachycardia - GI/Abdominal GI/Abdominal exam: Present: normal bowel sounds, soft. Absent: tenderness - Psychiatric Psychiatric exam: Present: normal affect, normal mood - Skin Skin exam: Present: dry, intact Internal Medicine: Result - Labs CBC & Chem 7: 07/24/17 08:44 07/23/17 05:42 - ABG Interpretation ABG results: PT/INR, D-dimer D-Dimer 1092 ng/mLFEU (0-500) H 07/22/17 17:27 Consult Discharge Plan - Plan Referrals: Mallory Matos, [facility] [facility] [Primary Care Provider] - 08/02/17 9:00 am <Jonatan Christopher - Last Filed: 07/24/17 15:50> Date of Encounter: 07/24/17 - Assessment and plan (1) Acute respiratory failure with hypoxia Current Visit: Yes Status: Acute Assessment and plan: Wean oxygen as tolerated (2) Asthma with exacerbation Current Visit: Yes Status: Acute Qualifiers: Asthma severity: moderate Asthma persistence: persistent Qualified Code(s ): J45.41 - Moderate persistent asthma with (acute) exacerbation (3) Pneumonia Current Visit: Yes Status: Acute Qualifiers: Pneumonia type: due to unspecified organism Laterality: right Lung location: lower lobe of lung Qualified Code(s): J18.1 - Lobar pneumonia, unspecified organism (4) BARON on CPAP Current Visit: Yes Status: Chronic (5) Morbid obesity with BMI of 45.0-49.9, adult Current Visit: Yes Status: Chronic (6) Second hand smoke exposure Current Visit: Yes Status: Chronic - Constitutional Vitals: Temp Pulse Resp BP Pulse Ox 98.2 F 131 20 156/77 94 07/24/17 11:22 07/24/17 11:36 07/24/17 11:22 07/24/17 11:22 07/24/17 11:22 Internal Medicine: Result - Labs CBC & Chem 7: 07/24/17 08:44 07/23/17 05:42 - ABG Interpretation ABG results: PT/INR, D-dimer D-Dimer 1092 ng/mLFEU (0-500) H 07/22/17 17:27 - Attending Attestation I examined this patient and my medical decision-making was reviewed with the Resident Physician on 07/24/17. I agree with the documented findings, disposition and treatment plan as described except to the extent set forth below. Ms Sinha is currently admitted for acute hypoxia with asthma exacerbation and pneumonia (probably viral). She remains moderate to high risk due to potential for worsening respiratory status. Ms Sinha is a little better today. She is coughing a lot still and is dyspneic with movement. Aerosols help but are making her more tachycardic. No fever or chills now. No CP. Still with a lot of sinus congestion. No purulent sputum. RIP with adenovirus. Exam Alert. Mod resp distress with movement Mucus membranes dry Heart tachy and regular Lungs with diffuse end exp wheeze - somewhat better than yesterday Abd soft No edema I/P 1. Hypoxia - still on high flow oxygen. Weaning as able but still quite dyspneic. 2. Asthma - persistent. Continue steroids, aerosols, oxygen and supportive care 3. Pneumonia - most likely viral as RIP positive. Further diagnoses and plan as above.
[2017-07-24 08:51] LABS: Basophils % 0.1 %; Hematocrit 43.3 % (35.3-44.9); Hemoglobin 13.4 g/dL (11.5-15.4); Immature Granulocytes % 1.1 % (0-4); Lymphocytes # 2.2 K/mcL (0.6-4.6); Lymphocytes % 9.7 %; Mean Corpuscular HGB Conc 30.9 g/dL (31.6-35.5); Mean Corpuscular Volume 84.1 fL (83.0-100.0); Monocytes # 0.5 K/mcL (0.0-1.3); Monocytes % 2.1 %; Neutrophils # 19.5 K/mcL (1.6-8.9); Platelet Count 293 K/mcL (140-400); Red Blood Count 5.15 M/mcL (3.82-4.97); Red Cell Distribution Width 15.8 % (11.5-14.5)
[2017-07-24] MEDS: Levofloxacin 750 MG/150 ML 750 MG/150 ML BAG IVPB SCH (20:25)
[2017-07-24] MEDS: Famotidine 20 MG TABLET PO SCH (20:25)
[2017-07-25] MEDS: Ipratropium/Albuterol Neb 3 ML IH SCH ×5 (03:37→20:13)
[2017-07-25] MEDS: *HR* Heparin 5,000 UNIT/ML VIAL SQ SCH ×2 (05:30→18:17)
[2017-07-25] MEDS: methylPREDNISolone 125 MG/2 ML VIAL IVP SCH (05:31)
[2017-07-25 05:33] LABS: Basophils % 0.2 %; Hematocrit 42.8 % (35.3-44.9); Hemoglobin 12.9 g/dL (11.5-15.4); Immature Granulocytes % 2.2 % (0-4); Lymphocytes # 1.8 K/mcL (0.6-4.6); Lymphocytes % 9.5 %; Mean Corpuscular HGB Conc 30.1 g/dL (31.6-35.5); Mean Corpuscular Hemoglobin 25.7 pg (28.0-33.3); Mean Corpuscular Volume 85.3 fL (83.0-100.0); Mean Platelet Volume 11.2 fL (9.4-12.4); Monocytes # 0.5 K/mcL (0.0-1.3); Monocytes % 2.8 %; Neutrophils # 16.1 K/mcL (1.6-8.9); Platelet Count 281 K/mcL (140-400); Red Blood Count 5.02 M/mcL (3.82-4.97); Red Cell Distribution Width 15.9 % (11.5-14.5); Segmented Neutrophils % 85.3 %
[2017-07-25 05:44] LABS: BUN/Creatinine Ratio 21 (6-26); Blood Urea Nitrogen 13 mg/dL (7-20); Calcium 8.7 mg/dL (8.6-10.8); Carbon Dioxide 24 mEq/L (19-29); Chloride 109 mEq/L (98-109); Glucose 142 mg/dL (70-99); Osmolality,Calculated 297 (280-300); Potassium 3.9 mEq/L (3.5-4.5); Sodium 142 mEq/L (136-145); eGFR For African Americans > 60 (> 60); eGFR For Non-African Americans > 60 (> 60)
[2017-07-25] MEDS: Budesonide/Formoterol 160/4.5 MDI IH SCH ×2 (07:50→20:13)
--- NOTE | 2017-07-25 11:45 | Internal Med Progress Note ---
<Daniel Berry - Last Filed: 07/25/17 11:54> Date of Encounter: 07/25/17 Time of Encounter: 09:00 - Assessment and plan (1) Asthma with exacerbation Current Visit: Yes Status: Acute Assessment and plan: Patient has known history of asthma with frequent attacks. Reports inconsistant compliance with medical regimen. Uses albuterol inhaler at home. Exposed to triggers like pet dander and cigarette smoke. Patient reported no respiratory distress this morning. Plan: -High flow O2 via NC -Albuterol neb 2.5 Q2 PRN -DuoNeb 3 mL Q4 PRN -Solumedrol reduced to 40 q8. -Incentive spirometry and flutter valve Qualifiers: Asthma severity: moderate Asthma persistence: persistent Qualified Code(s ): J45.41 - Moderate persistent asthma with (acute) exacerbation (2) Pneumonia Current Visit: Yes Status: Acute Assessment and plan: Chest CTA (07/22/17): Demonstrated multifocal pneumonia predominantly involving RLL. Viral PCR (07/23/17): positive for entero/rhino. WC has decreased from 22.4 to 18.8 Plan: -IV Levaquin 750 Q24; started on 07/23/17 (day 3 of abx) -Mucinex 600. -Repeat chest CT Qualifiers: Pneumonia type: due to unspecified organism Laterality: right Lung location: lower lobe of lung Qualified Code(s): J18.1 - Lobar pneumonia, unspecified organism (3) Hypoxia Current Visit: Yes Status: Acute Assessment and plan: Patient's O2 saturation this morning was 92. -High flow oxygen via nasal cannula. (4) DVT prophylaxis Current Visit: Yes Status: Acute Assessment and plan: Heparin 5000 sq Q12. (5) BARON on CPAP Current Visit: Yes Status: Chronic Assessment and plan: Patient on CPAP at night (6) Morbid obesity with BMI of 45.0-49.9, adult Current Visit: Yes Status: Chronic (7) Hypertension Current Visit: Yes Status: Acute Assessment and plan: Blood pressure this morning was 149/78. Metoprolol 12.5 PO BID Qualifiers: Qualified Code(s): I10 - Essential (primary) hypertension - Subjective Interval history: Patient was seen and examined at bedside this morning. Patient reports that she is feeling slightly better. Her only complaint is that when she rapidly changes position, primarily sitting up, she develops a coughing fit. These coughing fits are nonproductive. She denies any acute distress at rest. She denies having any chest pain at rest or with inspiration. She denies having any fever or chills. She has no complaint at this time. - Constitutional Vitals: Temp Pulse Resp BP Pulse Ox 98.1 F 123 20 148/73 93 07/25/17 11:26 07/25/17 11:26 07/25/17 11:26 07/25/17 11:26 07/25/17 11:26 General appearance: Present: A&O X 3, no acute distress, answers questions appropriately - Neck Neck exam general surgery: Present: full ROM, normal inspection. Absent: lymphadenopathy - Respiratory Respiratory exam: Absent: rales, rhonchi, stridor, wheezes Additional comments: shortened inspiratory and expiratory phase. - Cardiovascular Cardiovascular exam: Present: RRR, +S1, +S2. Absent: diastolic murmur, gallop, rubs, systolic murmur - Psychiatric Psychiatric exam: Present: normal affect, normal mood Internal Medicine: Result - Labs CBC & Chem 7: 07/25/17 04:16 07/25/17 04:16 Labs: Short CBC 07/25/17 Range/Units 04:16 WBC 18.8 H (4.3-11.1) K/mcL Hgb 12.9 (11.5-15.4) g/dL Hct 42.8 (35.3-44.9) % Plt Count 281 (140-400) K/mcL Neutrophils # 16.1 H (1.6-8.9) K/mcL BMP 07/25/17 04:16 Sodium 142 Potassium 3.9 Chloride 109 Carbon Dioxide 24 BUN 13 Creatinine 0.63 Glucose 142 H Calcium 8.7 - ABG Interpretation ABG results: PT/INR, D-dimer D-Dimer 1092 ng/mLFEU (0-500) H 07/22/17 17:27 - Impressions Impressions Chest X-Ray 07/24/17 15:13 IMPRESSION: 1. Lung base opacity seen on lateral view only. This may reflect pneumonia or partial atelectasis involving either left lower lobe or right lower lobe. D/ / 07/24/2017 22:48:44 Rhett Serrano MD / jenna Interpreting Provider: Rhett Serrano MD Consult Discharge Plan - Plan Referrals: Mallory Matos CNP [Primary Care Provider] - 08/02/17 9:00 am <Paris Love - Last Filed: 07/25/17 16:11> Date of Encounter: 07/25/17 - Constitutional Vitals: Temp Pulse Resp BP Pulse Ox 98.0 F 82 17 129/90 91 07/25/17 15:57 07/25/17 15:57 07/25/17 15:57 07/25/17 15:57 07/25/17 15:57 Internal Medicine: Result - Labs CBC & Chem 7: 07/25/17 04:16 07/25/17 04:16 Labs: Short CBC 07/25/17 Range/Units 04:16 WBC 18.8 H (4.3-11.1) K/mcL Hgb 12.9 (11.5-15.4) g/dL Hct 42.8 (35.3-44.9) % Plt Count 281 (140-400) K/mcL Neutrophils # 16.1 H (1.6-8.9) K/mcL BMP 07/25/17 04:16 Sodium 142 Potassium 3.9 Chloride 109 Carbon Dioxide 24 BUN 13 Creatinine 0.63 Glucose 142 H Calcium 8.7 - ABG Interpretation ABG results: PT/INR, D-dimer D-Dimer 1092 ng/mLFEU (0-500) H 07/22/17 17:27 - Impressions Impressions Chest X-Ray 07/24/17 15:13 IMPRESSION: 1. Lung base opacity seen on lateral view only. This may reflect pneumonia or partial atelectasis involving either left lower lobe or right lower lobe. D/ / 07/24/2017 22:48:44 Rhett Serrano MD / jenna Interpreting Provider: Rhett Serrano MD Chest CT 07/25/17 13:45 IMPRESSION: Previously noted areas of consolidation in the right lower lobe have resolved but there are now multifocal areas of ground-glass opacity throughout both lungs which are suspicious for atypical infection, less likely edema or hemorrhage. Suggest continued follow-up to complete resolution. D/ / Seb Carmona MD / Seb Carmona MD Interpreting Provider: Seb Carmona MD - Attending Attestation Patient is a 22y/o female admitted for acute respiratory failure secondary to PNA and asthma exacerbation Patient independently seen and examined at bedside. resting in bed and reports of feeling better compared to previous day. Currently saturating well on 3L NC, will continue to taper down O2 as tolerated continue abx, steroid taper initiated. Noted to be hypertensive and states she has history of preeclampsia during her Initially started on metoprolol however noted to have diffuse wheezing later in the day due to which metoprolol was discontinued added cardizem 30mg PO q8h for BP and HR control Labs and vitals reviewed. Case discussed with resident physician Daniel Berry, I agree with his documented findings, assessment, and plan.
[2017-07-25] MEDS: MethylPREDNISolone 40 MG/ML VIAL IVP SCH ×2 (14:46→21:29)
[2017-07-25] MEDS: Acetaminophen 325 MG TABLET PO PRN (21:29)
[2017-07-25] MEDS: Famotidine 20 MG TABLET PO SCH (21:29)
[2017-07-25] MEDS: Levofloxacin 750 MG/150 ML 750 MG/150 ML BAG IVPB SCH (21:29)
[2017-07-26] MEDS: Ipratropium/Albuterol Neb 3 ML IH SCH ×6 (00:23→20:47)
[2017-07-26 05:49] LABS: Basophils % 0.2 %; Hematocrit 41.7 % (35.3-44.9); Hemoglobin 12.9 g/dL (11.5-15.4); Immature Granulocytes % 1.4 % (0-4); Lymphocytes # 2.2 K/mcL (0.6-4.6); Lymphocytes % 12.7 %; Mean Corpuscular HGB Conc 30.9 g/dL (31.6-35.5); Mean Corpuscular Volume 83.9 fL (83.0-100.0); Mean Platelet Volume 10.9 fL (9.4-12.4); Monocytes # 0.7 K/mcL (0.0-1.3); Monocytes % 4.1 %; Neutrophils # 14.2 K/mcL (1.6-8.9); Platelet Count 275 K/mcL (140-400); Red Blood Count 4.97 M/mcL (3.82-4.97); Red Cell Distribution Width 15.4 % (11.5-14.5); Segmented Neutrophils % 81.6 %
[2017-07-26 06:08] LABS: BUN/Creatinine Ratio 27 (6-26); Blood Urea Nitrogen 17 mg/dL (7-20); Calcium 8.5 mg/dL (8.6-10.8); Carbon Dioxide 24 mEq/L (19-29); Chloride 109 mEq/L (98-109); Glucose 145 mg/dL (70-99); Magnesium 2.1 mg/dL (1.6-2.6); Osmolality,Calculated 294 (280-300); Phosphorous 4.6 mg/dL (2.3-4.7); Potassium 4.1 mEq/L (3.5-4.5); Sodium 140 mEq/L (136-145); eGFR For African Americans > 60 (> 60); eGFR For Non-African Americans > 60 (> 60)
[2017-07-26] MEDS: *HR* Heparin 5,000 UNIT/ML VIAL SQ SCH ×2 (06:22→18:20)
[2017-07-26] MEDS: MethylPREDNISolone 40 MG/ML VIAL IVP SCH (06:22)
[2017-07-26] MEDS: Budesonide/Formoterol 160/4.5 MDI IH SCH ×2 (07:29→20:47)
--- NOTE | 2017-07-26 14:41 | Internal Med Progress Note ---
<Daniel Berry - Last Filed: 07/26/17 14:49> Date of Encounter: 07/26/17 Time of Encounter: 08:00 - Assessment and plan (1) Asthma with exacerbation Current Visit: Yes Status: Acute Assessment and plan: Patient has known history of asthma with frequent attacks. Reports inconsistant compliance with medical regimen. Uses albuterol inhaler at home. Exposed to triggers like pet dander and cigarette smoke. Patient reported no respiratory distress this morning. Possible d/c tomorrow; Patient should follow up with ob gyn and PCP within the week. Plan: -Albuterol neb -DuoNebs -Solumedrol reduced to 40 q12. -Incentive spirometry and flutter valve -O2 has been discontinued. Qualifiers: Asthma severity: moderate Asthma persistence: persistent Qualified Code(s ): J45.41 - Moderate persistent asthma with (acute) exacerbation (2) Pneumonia Current Visit: Yes Status: Acute Assessment and plan: Chest CTA (07/22/17): Demonstrated multifocal pneumonia predominantly involving RLL. Viral PCR (07/23/17): Positive for entero/rhino. Chest CT (07/25/17): Previously noted areas of consolidation in the right lower lobe have resolved. Multifocal areas of groundglass opacities throughout both lungs suggestive of an atypical infection. WC has decreased from 22.4 to 17.3 Plan: -IV Levaquin 750 Q24; started on 07/23/17 (day 4 of abx) -Mucinex 600. Qualifiers: Pneumonia type: due to unspecified organism Laterality: right Lung location: lower lobe of lung Qualified Code(s): J18.1 - Lobar pneumonia, unspecified organism (3) Hypoxia Current Visit: Yes Status: Acute Assessment and plan: Patient's O2 saturation this morning was 93. (4) DVT prophylaxis Current Visit: Yes Status: Acute Assessment and plan: Heparin 5000 sq Q12 was ordered; patient has refused. Ambulation in hallways. (5) BARON on CPAP Current Visit: Yes Status: Chronic Assessment and plan: Patient on CPAP at night (6) Morbid obesity with BMI of 45.0-49.9, adult Current Visit: Yes Status: Chronic (7) Hypertension Current Visit: Yes Status: Acute Assessment and plan: Blood pressure this morning was 136/93. -Metoprolol 12.5 PO BID was initially ordered, but was discontinued due to possible wheezing. - Patient may be discharged on HCTZ. Qualifiers: Qualified Code(s): I10 - Essential (primary) hypertension - Subjective Interval history: Patient was seen and examined at bedside this morning. Patient reports that she is feeling much better than she did on admission. She reports that she no longer has any coughing spells when she changes position. O2 discontinued last night without issue. Denies fever, chills, and shortness of breath. Patient has no complaints at this time. - Constitutional Vitals: Temp Pulse Resp BP Pulse Ox 98.6 F 110 18 145/79 93 07/26/17 11:04 07/26/17 11:04 07/26/17 11:12 07/26/17 11:04 07/26/17 11:12 General appearance: Present: A&O X 3, no acute distress, answers questions appropriately - Head Head exam: Present: atraumatic, normocephalic - Neck Neck exam general surgery: Present: supple, trachea midline. Absent: lymphadenopathy - Respiratory Respiratory exam: Present: CTAB. Absent: accessory muscle use, rales, rhonchi, wheezes - Cardiovascular Cardiovascular exam: Present: RRR, +S1, +S2. Absent: diastolic murmur, gallop, rubs, systolic murmur - Extremities Exam Extremities exam: Present: warm, radial pulses palpable and symmetrical. Absent : calf tenderness, cyanotic, pedal edema - Psychiatric Psychiatric exam: Present: normal affect, normal mood - Skin Skin exam: Present: dry, intact Internal Medicine: Result - Labs CBC & Chem 7: 07/26/17 05:11 07/26/17 05:11 Labs: Short CBC 07/26/17 Range/Units 05:11 WBC 17.3 H (4.3-11.1) K/mcL Hgb 12.9 (11.5-15.4) g/dL Hct 41.7 (35.3-44.9) % Plt Count 275 (140-400) K/mcL Neutrophils # 14.2 H (1.6-8.9) K/mcL BMP 07/26/17 05:11 Sodium 140 Potassium 4.1 Chloride 109 Carbon Dioxide 24 BUN 17 Creatinine 0.64 Glucose 145 H Calcium 8.5 L - ABG Interpretation ABG results: PT/INR, D-dimer D-Dimer 1092 ng/mLFEU (0-500) H 07/22/17 17:27 - Impressions Impressions Chest CT 07/25/17 13:45 IMPRESSION: Previously noted areas of consolidation in the right lower lobe have resolved but there are now multifocal areas of ground-glass opacity throughout both lungs which are suspicious for atypical infection, less likely edema or hemorrhage. Suggest continued follow-up to complete resolution. D/ / Seb Carmona MD / Seb Carmona MD Interpreting Provider: Seb Carmona MD - VTE Documentation of Mechanical Device: Intermittent pneumatic compression device Consult Discharge Plan - Plan Referrals: Mallory Matos CNP [Primary Care Provider] - 08/02/17 9:00 am <Paris Love - Last Filed: 07/26/17 16:42> Date of Encounter: 07/26/17 Time of Encounter: 12:30 - Constitutional Vitals: Temp Pulse Resp BP Pulse Ox 98.6 F 110 18 145/79 93 07/26/17 11:04 07/26/17 11:04 07/26/17 15:24 07/26/17 11:04 07/26/17 15:24 Internal Medicine: Result - Labs CBC & Chem 7: 07/26/17 05:11 07/26/17 05:11 Labs: Short CBC 07/26/17 Range/Units 05:11 WBC 17.3 H (4.3-11.1) K/mcL Hgb 12.9 (11.5-15.4) g/dL Hct 41.7 (35.3-44.9) % Plt Count 275 (140-400) K/mcL Neutrophils # 14.2 H (1.6-8.9) K/mcL BMP 07/26/17 05:11 Sodium 140 Potassium 4.1 Chloride 109 Carbon Dioxide 24 BUN 17 Creatinine 0.64 Glucose 145 H Calcium 8.5 L - ABG Interpretation ABG results: PT/INR, D-dimer D-Dimer 1092 ng/mLFEU (0-500) H 07/22/17 17:27 - Attending Attestation Patient is a 22y/o female admitted for acute respiratory failure secondary to PNA and asthma exacerbation. Patient independently seen and examined with family present at bedside. Pt reports of feeling significantly better, saturating well on room air. Noted to remain tachycardic despite Cardizem therapy. Pt is noted to have sinus tachycardia and is asymptomatic, this could be secondary to the albuterol treatments she has been receiving. However given underlying hypertension and persistent tachycardia, will continue cardizem. Increased cardizem to 30mg PO q6h. Pt to undergo 6minute walk test for home O2 qualification Will changed to Solumedrol 40mg IV q12h and start Prednisone in am switch to PO abx in am to finish therapy for 7 days If patient remains clinically stable, likely d/c in am. Case discussed with resident physician Daniel Berry, I agree with his documented findings, assessment, and plan except as listed above.
[2017-07-26] MEDS ORDERED: MethylPREDNISolone 40 MG/ML VIAL IVP SCH (18:00)
[2017-07-26] MEDS: Levofloxacin 750 MG/150 ML 750 MG/150 ML BAG IVPB SCH (20:33)
[2017-07-26] MEDS: Famotidine 20 MG TABLET PO SCH (20:33)
[2017-07-27] MEDS: Ipratropium/Albuterol Neb 3 ML IH SCH ×4 (00:03→11:02)
[2017-07-27 03:21] LABS: Basophils % 0.2 %; Hematocrit 43.8 % (35.3-44.9); Hemoglobin 13.5 g/dL (11.5-15.4); Immature Granulocytes % 1.5 % (0-4); Lymphocytes # 2.1 K/mcL (0.6-4.6); Lymphocytes % 12.9 %; Mean Corpuscular HGB Conc 30.8 g/dL (31.6-35.5); Mean Corpuscular Hemoglobin 25.7 pg (28.0-33.3); Mean Corpuscular Volume 83.3 fL (83.0-100.0); Monocytes # 0.8 K/mcL (0.0-1.3); Platelet Count 279 K/mcL (140-400); Red Blood Count 5.26 M/mcL (3.82-4.97); Segmented Neutrophils % 80.4 %
[2017-07-27 03:38] LABS: Magnesium 2.5 mg/dL (1.6-2.6); Phosphorous 4.1 mg/dL (2.3-4.7)
[2017-07-27 03:40] LABS: BUN/Creatinine Ratio 25 (6-26); Blood Urea Nitrogen 17 mg/dL (7-20); Calcium 8.7 mg/dL (8.6-10.8); Carbon Dioxide 24 mEq/L (19-29); Chloride 108 mEq/L (98-109); Glucose 157 mg/dL (70-99); Osmolality,Calculated 293 (280-300); Potassium 4.1 mEq/L (3.5-4.5); Sodium 139 mEq/L (136-145); eGFR For African Americans > 60 (> 60); eGFR For Non-African Americans > 60 (> 60)
[2017-07-27] MEDS: *HR* Heparin 5,000 UNIT/ML VIAL SQ SCH (06:15)
[2017-07-27 07:22] VITALS: BP 145/90
[2017-07-27] MEDS: Budesonide/Formoterol 160/4.5 MDI IH SCH (07:36)
[2017-07-27] MEDS ORDERED: predniSONE 20 MG TABLET PO SCH (09:00)
--- NOTE | 2017-07-27 12:56 | Discharge Summary ---
<Daniel Berry - Last Filed: 07/27/17 13:34> Date of Encounter: 07/27/17 Time of Encounter: 08:55 - Discharge Diagnosis (1) Pneumonia Priority: Primary Status: Acute Comments: Patient will be given 2 more days worth of antibiotics for a 7 day total of antibiotic treatment. Levaquin by mouth 750 every 24 Prednisone taper: 40 mg PO Daily x 2 days 20 mg PO Daily x 2 days 10 mg PO Daily x 2 days Qualifiers: Pneumonia type: due to unspecified organism Laterality: right Lung location: lower lobe of lung Qualified Code(s): J18.1 - Lobar pneumonia, unspecified organism (2) Asthma with exacerbation Priority: Secondary Status: Acute Comments: Follow-up with pulmonology Qualifiers: Asthma severity: moderate Asthma persistence: persistent Qualified Code(s ): J45.41 - Moderate persistent asthma with (acute) exacerbation (3) Hypoxia Priority: Secondary Status: Acute (4) DVT prophylaxis Priority: Secondary Status: Acute (5) BARON on CPAP Priority: Secondary Status: Chronic (6) Morbid obesity with BMI of 45.0-49.9, adult Priority: Secondary Status: Chronic (7) Hypertension Priority: Secondary Status: Acute Qualifiers: Qualified Code(s): I10 - Essential (primary) hypertension - Discharge Medications Prescriptions: Levofloxacin [Levaquin] 750 mg PO DAILY #2 tablet predniSONE [PredniSONE] See Taper PO DAILY #6 tablet Home Medications: Albuterol Sulfate [Ventolin Hfa] 2 puff IH Q4H PRN 10/23/15 [History] Fluticasone Propionate [Flovent Hfa] 1 puff IH BID 10/23/15 [History] Ranitidine HCl [Acid Billet Straightener] 150 mg PO HS PRN 07/22/17 [History] Montelukast [Singulair] 10 mg PO HS 07/23/17 [History] Levofloxacin [Levaquin] 750 mg PO DAILY #2 tablet 07/27/17 [Rx] predniSONE [PredniSONE] See Taper PO DAILY #6 tablet 07/27/17 [Rx] Allergies/Adverse Reactions: 3 Allergy/AdvReac Type Severity Reaction Status Date / Time No Known Allergies Allergy Verified 07/23/17 12:34 Procedures/tests Complete & Pending: Procedures Performed prior 72 hours Category Date Time Status CT chest wo con [CT] Routine Cat Scan 07/25/17 13:45 Completed Date of admission: 07/24/17 11:24 Primary care physician: Mallory Matos CNP Discharging clinician: Daniel Berry Anticipated date of discharge: 07/27/17 - Patient Status Disposition: Home, Self-Care Condition: Good Overall status at discharge: patient is progressing back to baseline - Discharge Instructions Instructions: Levofloxacin (By mouth), Pneumonia (DC) Follow Up With: Mallory Matos CNP [Primary Care Provider] - 08/02/17 9:00 am - Diet and Activity Activity: increase activity as tolerated Diet: advance to your usual diet Hospital course: Ms. Sinha is a 22 year old female with past medical history of asthma who presented to the hospital on 07/22/17 with chief complaint of shortness of breath. Patient reports that she had been sick for approximately 3 days prior to her arrival to the hospital. She had several sick contacts, with both her son and fiance being sick with a cold for the last week. Patient reported that she felt chest tightness and thought she had an asthma exacerbation. Patient has an albuterol inhaler that she uses at home. When she attempted to use the inhaler, it did not relieve her shortness of breath. She admits to being exposed to triggers like pet dander and cigarette smoke. Chest x-ray performed in the ER was negative. Patient did have an elevated d-dimer and was tachycardic on presentation, so initial concern was the possibility of PE. CTA was performed on 07/22/17. Negative for PE. Demonstrated multifocal pneumonia predominantly involving the right lower lobe. Patient presented with an elevated white count. During her stay in the hospital, her white count went as high as 22.4. On date of discharge, patient's white count is 16.2.Viral PCR was performed on 07/23/17, which was positive for enterovirus/rhinovirus. Patient was started on IV Levaquin 750 every 24 on 07/23/17. She was also started on Solu-Medrol and given duo nebs as needed. Her Solu-Medrol was discontinued, and replaced with prednisone 40 mg by mouth daily. She was also started on Mucinex 600 mg. Patient initially had to be placed on high flow oxygen when she arrived to the hospital. She was initially placed on 12 L. Gradually, this was reduced. On 07/25/17, patient's oxygen was discontinued. During her stay in the hospital, patient denied ever having any fever or chills. She did have several episodes of coughing, especially when she attempted to sit up or change position rapidly. She reported that when she laid flat, her coughing improved. Patient had elevated blood pressure during her stay in the hospital. Patient was placed on Cardizem 30 mg by mouth every 6 hours on 07/26/17. On physical examination at bedside this morning, patient is in no acute distress. She has no respiratory distress on physical exam is unremarkable. No wheezing, rales, rhonchi present. Patient will follow-up with pulmonology in the outpatient setting approximately one week. She will be discharged with 2 more doses of Levaquin 750 by mouth daily to complete a 7 day total course of antibiotic treatment. - Time Spent with Patient Total time spent providing and/or coordinating discharge services: Greater than 30 minutes (42 minutes) - Constitutional Vitals: Temp Pulse Resp BP Pulse Ox 98.2 F 83 20 145/90 93 07/27/17 07:21 07/27/17 11:35 07/27/17 11:02 07/27/17 07:21 07/27/17 11:02 General appearance: Present: A&O X 3, no acute distress, answers questions appropriately - Head Head exam: Present: atraumatic, normocephalic - Eye Eye exam: Present: PERRL, conjuntiva pink, sclera anicteric Pupils: Present: PERRL - Neck Neck exam general surgery: Present: supple, trachea midline. Absent: lymphadenopathy - Respiratory Respiratory exam: Present: CTAB. Absent: accessory muscle use, rales, rhonchi, wheezes - Cardiovascular Cardiovascular exam: Present: RRR, +S1, +S2. Absent: diastolic murmur, gallop, rubs, systolic murmur - Extremities Exam Extremities exam: Present: warm, radial pulses palpable and symmetrical. Absent : calf tenderness, cyanotic, pedal edema - Skin Skin exam: Present: dry, intact - VTE Documentation of Mechanical Device: Intermittent pneumatic compression device <Juan Kennedy - Last Filed: 07/27/17 14:09> Date of Encounter: 07/27/17 Procedures/tests Complete & Pending: Procedures Performed prior 72 hours Category Date Time Status CT chest wo con [CT] Routine Cat Scan 07/25/17 13:45 Completed Date of admission: 07/24/17 11:24 Primary care physician: Mallory Matos, CLASSIFIER OPERATOR Hospital course: Ms. Sinha is a 22 year old female - Time Spent with Patient Total time spent providing and/or coordinating discharge services: - Constitutional Vitals: Temp Pulse Resp BP Pulse Ox 98.2 F 83 20 145/90 93 07/27/17 07:21 07/27/17 11:35 07/27/17 11:02 07/27/17 07:21 07/27/17 11:02 - Attending Attestation I independently interviewed and examined this pt. I agree with the findings, assessment and plan of Dr. Berry, editing internship. Pt stable for dc. 2 more days abx, follow up CXR in 4 weeks and Pulmonary Medicine follow up as outpt for optimization of ashtma tx.
== END 2017-07-27 13:55 | disposition home or self-care (01) | DRG 193 ==
LOC: 2NNU 16:49 → EMEROO 16:49 → 2NNU 22:21 → SUATTDRO 07-24 11:24
PROVIDERS: ADMIT Internal Medicine; ATTEND Internal Medicine

== ENCOUNTER 2018-05-17 19:59 | Inpatient (IN) ==
[2018-05-17] MEDS ORDERED: Ipratropium/Albuterol Neb 3 ML IH ONE (20:31)
[2018-05-17] MEDS ORDERED: methylPREDNISolone 125 MG/2 ML VIAL IVP ONE (20:32)
[2018-05-17] MEDS ORDERED: Ipratropium/Albuterol Neb 3 ML ONE (20:32)
--- NOTE | 2018-05-17 20:45 | Emergency Department Note ---
Disposition Clinical Impression: Shortness of breath Asthma exacerbation Qualifiers: Asthma severity: moderate Asthma persistence: unspecified Qualified Code(s): J45.901 - Unspecified asthma with (acute) exacerbation Disposition: Admitted As Inpatient Condition: Fair Forms: ED Satisfaction Letter Time of Disposition: 05:13 General Adult HPI - General Chief complaint: ED Shortness of Breath/Dyspnea Stated complaint: KASIE Time Seen by Provider: 05/17/18 20:24 Source: patient Mode of arrival: ambulatory Limitations: no limitations Nursing Notes Reviewed: Yes Vital Signs Reviewed: Yes - History of Present Illness HPI Narrative: Patient is a 23-year-old female that presents emergency department for shortness of breath. Patient states that she has a history of asthma and feels like her symptoms of been getting worse. Patient states that she has been having increased work of breathing. Patient states that she was seen at urgent care today and had one breathing treatment and states that she did feel somewhat better and went home and her symptoms get worse. Patient states she has been using her albuterol inhaler fairly regularly and more than normal. Patient states that she has been coughing but it has been nonproductive. Patient states that she was told that she likely have bronchitis. Patient denies any fevers or chills. Patient states this feels like when her asthma gets flared up. Patient denies any oxygen use at home. Pain Scale: 6 - Related Data Home Medications Medication Instructions Recorded Confirmed Albuterol Sulfate [Ventolin Hfa] 2 puff IH Q4H PRN 10/23/15 07/23/17 Fluticasone Propionate [Flovent 1 puff IH BID 10/23/15 07/23/17 Hfa] Ranitidine HCl [Acid Machine Heddle Cleaner] 150 mg PO HS PRN 07/22/17 07/22/17 Previous Rx's Medication Instructions Recorded Albuterol Sulfate [Proair Hfa] 2 puff IH QID 30 Days #1 inh 05/17/18 Guaifenesin/Dm/Pseudoephedrine 1 each PO QID #20 tablet 05/17/18 [Capmist Dm Tablet] predniSONE [PredniSONE] 20 mg PO DAILY 5 Days #5 tablet 05/17/18 Allergies Allergy/AdvReac Type Severity Reaction Status Date / Time No Known Allergies Allergy Verified 05/17/18 12:55 All systems ED: reviewed and negative except as stated. Constitutional: Denies: fever Cardiovascular: Denies: chest pain Respiratory: Reports: cough, dyspnea. Denies: sputum production Gastrointestinal: Denies: abdominal pain Past Medical History - Past Medical History Medical history: Reports: asthma Surgical history: Reports: no surgical history Psychiatric history: Reports: depression - Social History Smoking Status: Never smoker Smokeless Tobacco Status: No Alcohol use: Reports: none Drug use: Reports: none Physical Exam - General Limitations: no limitations General appearance: alert, in no apparent distress - Head Head exam: atraumatic, normocephalic - Eye Eye exam: Present: normal appearance, EOMI - Neck Neck exam: Present: normal inspection, full ROM, trachea midline - Respiratory Respiratory exam: Present: wheezes (Wheezes bilaterally), other (Decreased breath sounds bilaterally) - Cardiovascular Cardiovascular exam: Present: normal rhythm, tachycardia, normal heart sounds, + S1, +S2 - Abdominal Exam Abdominal exam: Present: soft, Non-Tender, normal bowel sounds - Neurological Exam Neurological exam: Present: alert, oriented X3 - Psychiatric Psychiatric exam: Present: normal affect, normal mood - Skin Skin exam: Present: warm, dry, intact Course Vital Signs Temperature 98.9 F 05/17/18 20:07 Pulse Rate 126 05/17/18 20:07 Respiratory Rate 28 05/17/18 20:07 Blood Pressure 156/86 05/17/18 20:07 O2 Sat by Pulse Oximetry 88 05/17/18 20:07 Temperature 98.9 F 05/17/18 20:41 Pulse Rate 122 05/18/18 04:30 Respiratory Rate 18 05/18/18 04:30 Blood Pressure 131/73 05/18/18 04:30 O2 Sat by Pulse Oximetry 95 05/18/18 04:30 Oxygen Delivery Oxygen Delivery Nasal Cannula Medical Decision Making - [facility] Narrative Medical decision making narrative: Due the patient's into the emergency department with likely asthma exacerbation we will obtain a chest x-ray and provide the patient with DuoNeb breathing treatments and steroids. Chest x-ray was negative. Patient had minimal improvement of her symptoms with breathing treatments and steroids. Patient will need to be admitted to the hospital due to oxygen requirement. I called and spoke with the admitting hospitalist Dr. Gómez and he requested that basic laboratory tests including a CBC and a chemistry be obtained. Also requested a d-dimer. The d-dimer was elevated. A CTA of the chest was obtained which was negative for pulmonary embolus per radiology. The radiologist did call and speak to me and stated that there was some chronic changes that is been waxing and waning and he recommended that she follow-up with a coater operator insulation board due to the findings on the CT scan. Dr. Gómez and stated that after the labs had returned that the patient to be admitted to the hospital. Patient will be admitted to the hospital for further evaluation and management. - Medical Records Medical records reviewed: Yes I reviewed the patient's medical records. - Lab Data Lab results reviewed: Yes I reviewed the patient's lab results. Result diagrams: 05/18/18 02:50 05/18/18 02:50 Lab Results 05/18/18 05/18/18 05/18/18 Range/Units 02:50 02:50 02:50 WBC 15.2 H (4.3-11.1) K/mcL RBC 5.29 H (3.82-4.97) M/mcL Hgb 14.3 (11.5-15.4) g/dL Hct 43.5 (35.3-44.9) % MCV 82.2 L (83.0-100.0) fL MCH 27.0 L (28.0-33.3) pg MCHC 32.9 (31.6-35.5) g/dL RDW 14.9 H (11.5-14.5) % Plt Count 260 (140-400) K/mcL MPV 11.1 (9.4-12.4) fL Immature Gran % 0.4 (0-4) % Seg Neutrophils % 95.1 % Lymphocytes % 3.8 % Monocytes % 0.6 % Eosinophils % 0.0 % Basophils % 0.1 % Neutrophils # 14.5 H (1.6-8.9) K/mcL Lymphocytes # 0.6 (0.6-4.6) K/mcL Monocytes # 0.1 (0.0-1.3) K/mcL Eosinophils # 0.0 (0.0-0.6) K/mcL Basophils # 0.0 (0.0-0.2) K/mcL D-Dimer 947 H (0-500) ng/mLFEU Sodium 139 (136-145) mEq/L Potassium 3.1 L (3.5-5.1) mEq/L Chloride 106 (98-107) mEq/L Carbon Dioxide 22 L (23-29) mEq/L BUN 12 (6-20) mg/dL Creatinine 0.61 (0.60-1.20) mg/dL Est GFR ( Amer) > 60 (> 60) Est GFR (Non-Af Amer) > 60 (> 60) BUN/Creatinine Ratio 20 (6-26) Glucose 181 H (70-105) mg/dL Calculated Osmolality 292 (280-300) Calcium 9.4 (8.6-10.3) mg/dL Total Bilirubin 0.4 (0.3-1.0) mg/dL AST 16 (13-39) Units/L ALT 23 (7-52) Units/L Alkaline Phosphatase 64 (34-104) Units/L Serum Total Protein 7.5 (6.4-8.9) g/dL Albumin 4.5 (3.5-5.7) g/dL Globulin 3.0 (2.4-3.5) g/dL Albumin/Globulin Ratio 1.5 (1.1-2.2) - Radiology Data Radiology results reviewed: Yes I reviewed the patient's radiology results. Chest X-Ray 05/17/18 20:33 IMPRESSION: No acute abnormality. D/ / 05/17/2018 21:11:10 Carmelo Messina MD / [email or web address] Interpreting Provider: Carmelo Messina MD Chest CTA 05/18/18 04:05 IMPRESSION: Negative for acute pulmonary embolism. Decreased though persistent multifocal ground-glass opacities with areas of residual atelectasis. Differential considerations would include residual infectious or inflammatory process. Recommend outpatient pulmonary medicine referral. Diffuse airway inflammation, consistent with underlying history of asthma. D/ / Federico Stuart / Federico Stuart Interpreting Provider: Federico Stuart
[2018-05-17] MEDS ORDERED: Albuterol 2.5 MG/3 ML NEBULIZER IH ONE (23:08)
[2018-05-18 03:00] LABS: Basophils % 0.1 %; Hematocrit 43.5 % (35.3-44.9); Hemoglobin 14.3 g/dL (11.5-15.4); Immature Granulocytes % 0.4 % (0-4); Lymphocytes # 0.6 K/mcL (0.6-4.6); Lymphocytes % 3.8 %; Mean Corpuscular HGB Conc 32.9 g/dL (31.6-35.5); Mean Corpuscular Volume 82.2 fL (83.0-100.0); Mean Platelet Volume 11.1 fL (9.4-12.4); Monocytes # 0.1 K/mcL (0.0-1.3); Monocytes % 0.6 %; Neutrophils # 14.5 K/mcL (1.6-8.9); Platelet Count 260 K/mcL (140-400); Red Blood Count 5.29 M/mcL (3.82-4.97); Red Cell Distribution Width 14.9 % (11.5-14.5); Segmented Neutrophils % 95.1 %
[2018-05-18 03:19] LABS: Alanine Aminotransferase 23 Units/L (7-52); Albumin 4.5 g/dL (3.5-5.7); Albumin/Globulin Ratio 1.5 (1.1-2.2); Alkaline Phosphatase 64 Units/L (34-104); Aspartate Amino Transferase 16 Units/L (13-39); BUN/Creatinine Ratio 20 (6-26); Bilirubin,Total 0.4 mg/dL (0.3-1.0); Blood Urea Nitrogen 12 mg/dL (6-20); Calcium 9.4 mg/dL (8.6-10.3); Carbon Dioxide 22 mEq/L (23-29); Chloride 106 mEq/L (98-107); Glucose 181 mg/dL (70-105); Osmolality,Calculated 292 (280-300); Potassium 3.1 mEq/L (3.5-5.1); Sodium 139 mEq/L (136-145); Total Protein 7.5 g/dL (6.4-8.9); eGFR For Non-African Americans > 60 (> 60)
[2018-05-18] MEDS ORDERED: Isovue-370 500 ML INFUS..BTL IV ONE (04:05)
--- NOTE | 2018-05-18 05:22 | Emergency Department Note ---
Disposition Clinical Impression: Shortness of breath Asthma exacerbation Qualifiers: Asthma severity: moderate Asthma persistence: unspecified Qualified Code(s): J45.901 - Unspecified asthma with (acute) exacerbation Disposition: Admitted As Inpatient Condition: Fair General Adult HPI - General Chief complaint: ED Shortness of Breath/Dyspnea Stated complaint: KASIE Time Seen by Provider: 05/17/18 20:24 Source: patient Mode of arrival: ambulatory Limitations: no limitations Nursing Notes Reviewed: Yes Vital Signs Reviewed: Yes - History of Present Illness Pain Scale: 6 - Related Data Home Medications Medication Instructions Recorded Confirmed Albuterol Sulfate [Ventolin Hfa] 2 puff IH Q4H PRN 10/23/15 07/23/17 Fluticasone Propionate [Flovent 1 puff IH BID 10/23/15 07/23/17 Hfa] Ranitidine HCl [Acid Electronic Sales And Service Technician] 150 mg PO HS PRN 07/22/17 07/22/17 Previous Rx's Medication Instructions Recorded Albuterol Sulfate [Proair Hfa] 2 puff IH QID 30 Days #1 inh 05/17/18 Guaifenesin/Dm/Pseudoephedrine 1 each PO QID #20 tablet 05/17/18 [Capmist Dm Tablet] predniSONE [PredniSONE] 20 mg PO DAILY 5 Days #5 tablet 05/17/18 Allergies Allergy/AdvReac Type Severity Reaction Status Date / Time No Known Allergies Allergy Verified 05/17/18 12:55 Constitutional: Denies: fever Cardiovascular: Denies: chest pain Respiratory: Reports: cough, dyspnea. Denies: sputum production Gastrointestinal: Denies: abdominal pain Past Medical History - Past Medical History Medical history: Reports: asthma Surgical history: Reports: no surgical history Psychiatric history: Reports: depression AMMONIA BOX OPERATOR history: Reports: no AMMONIA BOX OPERATOR history - Social History Smoking Status: Never smoker Smokeless Tobacco Status: No Alcohol use: Reports: none Drug use: Reports: none Physical Exam - General Limitations: no limitations General appearance: alert, in no apparent distress Course Vital Signs Temperature 98.9 F 05/17/18 20:07 Pulse Rate 126 05/17/18 20:07 Respiratory Rate 28 05/17/18 20:07 Blood Pressure 156/86 05/17/18 20:07 O2 Sat by Pulse Oximetry 88 05/17/18 20:07 Temperature 98.9 F 05/17/18 20:41 Pulse Rate 122 05/18/18 04:30 Respiratory Rate 18 05/18/18 04:30 Blood Pressure 131/73 05/18/18 04:30 O2 Sat by Pulse Oximetry 95 05/18/18 04:30 Oxygen Delivery Oxygen Delivery Nasal Cannula Medical Decision Making - Medical Records Medical records reviewed: Yes I reviewed the patient's medical records. - Lab Data Lab results reviewed: Yes I reviewed the patient's lab results. Result diagrams: 05/18/18 02:50 05/18/18 02:50 Lab Results 05/18/18 05/18/18 05/18/18 Range/Units 02:50 02:50 02:50 WBC 15.2 H (4.3-11.1) K/mcL RBC 5.29 H (3.82-4.97) M/mcL Hgb 14.3 (11.5-15.4) g/dL Hct 43.5 (35.3-44.9) % MCV 82.2 L (83.0-100.0) fL MCH 27.0 L (28.0-33.3) pg MCHC 32.9 (31.6-35.5) g/dL RDW 14.9 H (11.5-14.5) % Plt Count 260 (140-400) K/mcL MPV 11.1 (9.4-12.4) fL Immature Gran % 0.4 (0-4) % Seg Neutrophils % 95.1 % Lymphocytes % 3.8 % Monocytes % 0.6 % Eosinophils % 0.0 % Basophils % 0.1 % Neutrophils # 14.5 H (1.6-8.9) K/mcL Lymphocytes # 0.6 (0.6-4.6) K/mcL Monocytes # 0.1 (0.0-1.3) K/mcL Eosinophils # 0.0 (0.0-0.6) K/mcL Basophils # 0.0 (0.0-0.2) K/mcL D-Dimer 947 H (0-500) ng/mLFEU Sodium 139 (136-145) mEq/L Potassium 3.1 L (3.5-5.1) mEq/L Chloride 106 (98-107) mEq/L Carbon Dioxide 22 L (23-29) mEq/L BUN 12 (6-20) mg/dL Creatinine 0.61 (0.60-1.20) mg/dL Est GFR ( Amer) > 60 (> 60) Est GFR (Non-Af Amer) > 60 (> 60) BUN/Creatinine Ratio 20 (6-26) Glucose 181 H (70-105) mg/dL Calculated Osmolality 292 (280-300) Calcium 9.4 (8.6-10.3) mg/dL Total Bilirubin 0.4 (0.3-1.0) mg/dL AST 16 (13-39) Units/L ALT 23 (7-52) Units/L Alkaline Phosphatase 64 (34-104) Units/L Serum Total Protein 7.5 (6.4-8.9) g/dL Albumin 4.5 (3.5-5.7) g/dL Globulin 3.0 (2.4-3.5) g/dL Albumin/Globulin Ratio 1.5 (1.1-2.2) - Radiology Data Radiology results reviewed: Yes I reviewed the patient's radiology results. Chest X-Ray 05/17/18 20:33 IMPRESSION: No acute abnormality. D/ / 05/17/2018 21:11:10 Carmelo Messina MD / [email or web address] Interpreting Provider: Carmelo Messina MD Chest CTA 05/18/18 04:05 IMPRESSION: Negative for acute pulmonary embolism. Decreased though persistent multifocal ground-glass opacities with areas of residual atelectasis. Differential considerations would include residual infectious or inflammatory process. Recommend outpatient pulmonary medicine referral. Diffuse airway inflammation, consistent with underlying history of asthma. D/ / Federico Stuart / Federico Stuart Interpreting Provider: Federico Stuart Attestation Statement - Attestation Attestation: I, Husam Salazar MD, personally evaluated this patient and discussed their management with the resident physician. I reviewed the resident's note and agree with the documented findings, medical decision making, and plan of care. 23-year-old female with history of asthma presents to the emergency department with a complaint of increased shortness of breath over the past couple of days. Symptoms became worse today while she was at work. She was seen at an urgent care and diagnosed with a viral bronchitis. She was given a breathing treatment with some improvement. She presents to the emergency department tonight complaining of worsening of her shortness of breath. Some nonproductive cough. No fever. No chest pain but chest just feels tight from her difficulty breathing. Patient states that she has a history of a similar episode in the past due to pneumonia which did not show up on a chest x-ray but was found on a CT. On examination patient is a well-developed obese young female in mild respiratory distress. She is alert and oriented 3. There is no cyanosis or diaphoresis. She is tachypneic with audible wheezes. Breath sounds are equal bilaterally with scattered diffuse bilateral inspiratory and expiratory wheezes. Heart regular with a mild tachycardia. Abdomen soft and nontender with normal bowel sounds. Labs and imaging reviewed. Patient received triple DuoNeb and IV Solu-Medrol with no significant left clinically all the wheezes did improve she continues to feel short of breath and oxygen saturation in the low 90s. She received additional albuterol nebulizer treatments and still states that she feels no better at one point her oxygen saturation dropped down to 87% on oxygen by nasal cannula. The hospitalist, Dr. Gómez, was consulted and accepted admission of the patient.
[2018-05-18] MEDS ORDERED: Naloxone 0.4 MG/ML INJ IVP PRN (06:30)
[2018-05-18] MEDS ORDERED: Albuterol 2.5 MG/3 ML NEBULIZER IH PRN (06:31)
--- NOTE | 2018-05-18 06:40 | Internal Med History&Physical ---
Date of Encounter: 05/18/18 Time of Encounter: 06:15 Internal Medicine - H&P: HPI Chief complaint: Asthma exacerbation Admitted From: Emergency Dept Plans for Post Hospital Care: Home History of present illness: Ms. Sinha is a 23 year old female Patient presented to the emergency room for 2 day history of congestion and shortness of breath. 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 She went to the urgent care who examined her and told her she had viral bronchitis gave her steroid prescription and breathing treatment and sent her home. She has had similar episodes like this in the past including at one time being hospitalized for 5 days. She has been trying using her albuterol at home but has not helped. She denies nausea, vomiting, diarrhea , constipation. She continues to have shortness of breath and a band-like chest pain. In the ER patient received albuterol treatments but she was continuing to be hypoxic and requiring supplemental oxygen. CBC was within normal limits, BMP showed a hypokalemia of 3.1. D-dimer was 947. CT angio was negative for acute pulmonary embolism. Chest x-ray was negative. She was admitted for further work up and management of her Asthma exacerbation. Past Med Surg Social Fam HX - Past Medical History Medical history: asthma Additional medical history: BARON, pre-eclampsia Psychiatric history: depression - Past Surgical History Surgical History: no surgical history - Social History Smoking Status: Never smoker Smokeless Tobacco Status: No Alcohol use: none Drug use: none - Family History Father Hx Family Cardiac Disorders: Yes (AFib) Internal Medicine - H&P: Meds Albuterol Sulfate [Ventolin Hfa] 2 puff IH Q4H PRN 10/23/15 [History] Fluticasone Propionate [Flovent Hfa] 1 puff IH BID 10/23/15 [History] Ranitidine HCl [Acid Product Sales Representative] 150 mg PO HS PRN 07/22/17 [History] Albuterol Sulfate [Proair Hfa] 2 puff IH QID 30 Days #1 inh 05/17/18 [Rx] Guaifenesin/Dm/Pseudoephedrine [Capmist Dm Tablet] 1 each PO QID #20 tablet [Rx] predniSONE [PredniSONE] 20 mg PO DAILY 5 Days #5 tablet 05/17/18 [Rx] 3 Allergy/AdvReac Type Severity Reaction Status Date / Time No Known Allergies Allergy Verified 05/17/18 12:55 All Systems PM: A 10-system review of systems was performed and is negative for pertinent findings except as documented above in the HPI. - Constitutional Vitals: Temp Pulse Resp BP Pulse Ox 98.9 F 122 20 138/83 95 05/17/18 20:41 05/18/18 04:30 05/18/18 05:25 05/18/18 05:25 05/18/18 04:30 General appearance: Present: cooperative, A&O X 3, pleasant, no acute distress, answers questions appropriately Exam: as above - Head Head exam: Present: normal inspection - Eye Eye exam: Present: EOMI, normal appearance - Neck Neck exam general surgery: Present: full ROM - Respiratory Respiratory exam: Present: decreased breath sounds, respiratory distress, wheezes. Absent: chest wall tenderness, rales, rhonchi - Cardiovascular Cardiovascular exam: Present: RRR. Absent: diastolic murmur, systolic murmur - GI/Abdominal GI/Abdominal exam: Present: normal bowel sounds, soft. Absent: tenderness - Extremities Exam Extremities exam: Present: warm, radial pulses palpable and symmetrical. Absent : calf tenderness, pedal edema, tenderness - Back Exam Back exam: Present: tenderness Additional comments: Tenderness over ribs in back - Neurological Exam Neurological exam: Present: no focal deficits, strengths equal and symetr throughout. Absent: motor sensory deficit, facial droop, speech deficit - Skin Skin exam: Present: dry, normal color, warm Internal Med - H&P Results - Labs CBC & Chem 7: 05/18/18 02:50 05/18/18 02:50 - Assessment and plan (1) Asthma with exacerbation Current Visit: No Status: Acute Assessment and plan: Patient presents with asthma exacerbation. Continues to be hypoxic, requiring oxygen. She does not use oxygen at home, but does use CPAP at night. Prednisone daily 40mg Albuterol nebulizer with PRN albuterol Azithromycin 500mg Daily IV Singular at night Continuous pulse ox Qualifiers: Asthma severity: moderate Asthma persistence: persistent Qualified Code(s ): J45.41 - Moderate persistent asthma with (acute) exacerbation (2) Hypoxia Current Visit: No Status: Acute Assessment and plan: Secondary to asthma exacerbation Treatment as above. (3) Shortness of breath Current Visit: Yes Status: Acute Assessment and plan: Secondary to asthma exacerbation. Could be component of infectious process as well due to many people at her office being sick recently. Azithromycin started. Continue to monitor. (4) Hypokalemia Current Visit: Yes Status: Acute Assessment and plan: 3.1 on initial blood work. Replete, recheck labs Check magnesium (5) DVT prophylaxis Current Visit: No Status: Acute Assessment and plan: Heparin subq - Time Spent With Patient Total time spent is greater than 50% in coordination of care (as documented) at patient's floor/unit and/or counseling patient: Greater than 35 minutes
[2018-05-18] MEDS ORDERED: Potassium Chloride Elixir 20 MEQ/15 ML UDC PO ONE (06:52)
[2018-05-18] MEDS: Azithromycin 500 MG in D5% in Water 250 ML IVPB SCH (08:00)
[2018-05-18] MEDS: predniSONE 20 MG TABLET PO SCH (08:00)
[2018-05-18] MEDS ORDERED: Beclomethasone 40mcg MDI IH SCH (10:00)
[2018-05-18] MEDS: Ipratropium/Albuterol Neb 3 ML IH SCH ×2 (15:47→22:28)
[2018-05-18] MEDS: *HR* Heparin 5,000 UNIT/ML VIAL SQ SCH (17:11)
--- NOTE | 2018-05-18 19:31 | Event Note ---
Date of Encounter: 05/18/18 Time of Encounter: 11:00 Patient evaluated by nocturnalist earlier this morning and also by myself. Patient presents with shortness of breath found to have asthma exacerbation secondary to bacterial bronchitis. Continue IV azithromycin in addition to oral prednisone with scheduled DuoNebs.
[2018-05-18] MEDS: Famotidine 20 MG TABLET PO PRN (20:18)
[2018-05-18] MEDS: Acetaminophen 325 MG TABLET PO PRN (21:39)
[2018-05-19] MEDS: Ipratropium/Albuterol Neb 3 ML IH SCH ×4 (04:36→22:17)
[2018-05-19] MEDS: *HR* Heparin 5,000 UNIT/ML VIAL SQ SCH ×2 (06:20→17:26)
[2018-05-19] MEDS: Acetaminophen 325 MG TABLET PO PRN (07:02)
[2018-05-19 07:41] LABS: Magnesium 1.9 mg/dL (1.6-2.6)
[2018-05-19] MEDS: predniSONE 20 MG TABLET PO SCH (09:13)
[2018-05-19] MEDS: Azithromycin 500 MG in D5% in Water 250 ML IVPB SCH (09:13)
[2018-05-19] MEDS ORDERED: Ibuprofen 400 MG TABLET PO ONE (10:48)
[2018-05-19] MEDS ORDERED: Ondansetron 4 MG/2 ML VIAL IVP ONE (10:50)
--- NOTE | 2018-05-19 10:51 | Internal Med Progress Note ---
Hospitalist Progress Note - Encounter Date of Encounter: 05/19/18 Time of Encounter: 11:00 - Subjective Interval History: Patient reports of some improvement with shortness of breath this morning but still requiring increased amounts of supplemental oxygenation - Exam Vitals: Temp Pulse Resp BP Pulse Ox 98.7 F 107 18 116/77 96 05/19/18 10:31 05/19/18 10:31 05/19/18 10:31 05/19/18 10:31 05/19/18 10:31 Exam: Gen.: Nonacute distress, alert and oriented 3 ENT: Mucosal membranes moist Respiratory: Diminish breath sounds bilaterally Cardiovascular: Normal S1 and S2 regular rate rhythm no murmurs rubs or gallops Abdomen: Soft, nontender and nondistended with positive bowel sounds Extremities: No lower extremity edema Skin: Normal color - Assessment and Plan (1) Asthma exacerbation Current Visit: Yes Status: Acute Assessment and Plan: Patient still diminished this morning with expiratory wheezes in addition to still requiring increase amounts of supplemental oxygenation Continue current management with oral prednisone, scheduled dual nebs in addition to IV azithromycin for suspected bronchitis (2) Acute respiratory failure with hypoxia Current Visit: No Status: Acute Assessment and Plan: Patient still requiring increased amounts of supplemental oxygenation secondary to asthma exacerbation/bronchitis Continue current management as above (3) Bronchitis Current Visit: No Status: Acute Assessment and Plan: Patient with leukocytosis on admission Suspect bacterial bronchitis so we will continue day 2 of IV azithromycin. (4) Hypokalemia Current Visit: Yes Status: Acute Assessment and Plan: Continue potassium supplementation as needed (5) BARON on CPAP Current Visit: No Status: Chronic (6) Morbid obesity with BMI of 45.0-49.9, adult Current Visit: No Status: Chronic Assessment and Plan: Lifestyle modifications DVT Prophylaxis: Subcutaneous heparin - Time Spent with Patient Total time spent is greater than 50% in coordination of care (as documented) at patient's floor/unit and/or counseling patient: Internal Medicine: Result - Labs CBC & Chem 7: 05/19/18 11:10 05/19/18 11:10 - ABG Interpretation ABG results: PT/INR, D-dimer D-Dimer 947 ng/mLFEU (0-500) H 05/18/18 02:50 Consult Discharge Plan - Plan Referrals: Mallory Matos, PARACHUTE OFFICER [Primary Care Provider] - (1) Asthma exacerbation Qualifiers: Asthma severity: moderate Asthma persistence: unspecified Qualified Code(s) : J45.901 - Unspecified asthma with (acute) exacerbation
[2018-05-19 11:23] LABS: Basophils # 0.1 K/mcL (0.0-0.2); Basophils % 0.5 %; Eosinophils # 0.8 K/mcL (0.0-0.6); Eosinophils % 5.5 %; Hematocrit 41.3 % (35.3-44.9); Hemoglobin 13.1 g/dL (11.5-15.4); Immature Granulocytes % 0.4 % (0-4); Immature Platelets 5.8 % (1.1-6.1); Lymphocytes # 2.2 K/mcL (0.6-4.6); Lymphocytes % 15.5 %; Mean Corpuscular HGB Conc 31.7 g/dL (31.6-35.5); Monocytes % 7.1 %; Neutrophils # 9.9 K/mcL (1.6-8.9); Platelet Count 215 K/mcL (140-400); Red Blood Count 4.86 M/mcL (3.82-4.97); Red Cell Distribution Width 15.6 % (11.5-14.5)
[2018-05-19 11:39] LABS: BUN/Creatinine Ratio 24 (6-26); Blood Urea Nitrogen 17 mg/dL (6-20); Calcium 8.9 mg/dL (8.6-10.3); Carbon Dioxide 26 mEq/L (23-29); Chloride 108 mEq/L (98-107); Glucose 85 mg/dL (70-105); Osmolality,Calculated 295 (280-300); Potassium 3.7 mEq/L (3.5-5.1); Sodium 142 mEq/L (136-145); eGFR For Non-African Americans > 60 (> 60)
[2018-05-19] MEDS: Famotidine 20 MG TABLET PO PRN (19:49)
[2018-05-20] MEDS: Ipratropium/Albuterol Neb 3 ML IH SCH ×4 (03:44→19:58)
[2018-05-20] MEDS: *HR* Heparin 5,000 UNIT/ML VIAL SQ SCH ×2 (05:57→18:02)
[2018-05-20] MEDS: Azithromycin 500 MG in D5% in Water 250 ML IVPB SCH (07:53)
--- NOTE | 2018-05-20 07:54 | Internal Med Progress Note ---
Hospitalist Progress Note - Encounter Date of Encounter: 05/20/18 Time of Encounter: 11:00 - Subjective Interval History: Patient presented due to shortness of breath found to have asthma exacerbation secondary to bacterial bronchitis. She is still requiring high amounts of O2 supplementation this morning. She will be started on IV Solu-Medrol. - Exam Vitals: Temp Pulse Resp BP Pulse Ox 98.1 F 84 18 143/84 98 05/20/18 07:00 05/20/18 07:00 05/20/18 07:00 05/20/18 07:00 05/20/18 07:00 Exam: Gen.: Nonacute distress, alert and oriented 3 ENT: Mucosal membranes moist Respiratory: Diminish breath sounds bilaterally Cardiovascular: Normal S1 and S2 regular rate rhythm no murmurs rubs or gallops Abdomen: Soft, nontender and nondistended with positive bowel sounds Extremities: No lower extremity edema Skin: Normal color - Assessment and Plan (1) Asthma exacerbation Current Visit: Yes Status: Acute Assessment and Plan: Patient still diminished this morning with expiratory wheezes in addition to still requiring increase amounts of supplemental oxygenation Patient's by mouth prednisone has been changed to IV Solu-Medrol Continue scheduled DuoNeb's and IV azithromycin for bronchitis as below Will try to wean patient off O2 supplementation as tolerates today (2) Acute respiratory failure with hypoxia Current Visit: No Status: Acute Assessment and Plan: Patient still requiring increased amounts of supplemental oxygenation secondary to asthma exacerbation/bronchitis Continue current management as above Will wean supplemental oxygenation as tolerates (3) Bronchitis Current Visit: No Status: Acute Assessment and Plan: Patient with leukocytosis on admission Suspect bacterial bronchitis so we will continue day 3 of IV azithromycin. (4) Hypokalemia Current Visit: Yes Status: Acute Assessment and Plan: Continue potassium supplementation as needed (5) BARON on CPAP Current Visit: No Status: Chronic Assessment and Plan: CPAP daily at bedtime (6) Morbid obesity with BMI of 45.0-49.9, adult Current Visit: No Status: Chronic Assessment and Plan: Lifestyle modifications DVT Prophylaxis: Subcutaneous heparin - Time Spent with Patient Total time spent is greater than 50% in coordination of care (as documented) at patient's floor/unit and/or counseling patient: Internal Medicine: Result - Labs CBC & Chem 7: 05/20/18 07:52 05/20/18 07:52 - ABG Interpretation ABG results: PT/INR, D-dimer D-Dimer 947 ng/mLFEU (0-500) H 05/18/18 02:50 Consult Discharge Plan - Plan Referrals: Mallory Matos, SHAPER OPERATOR [Primary Care Provider] - (1) Asthma exacerbation Qualifiers: Asthma severity: moderate Asthma persistence: unspecified Qualified Code(s) : J45.901 - Unspecified asthma with (acute) exacerbation
[2018-05-20] MEDS: methylPREDNISolone 125 MG/2 ML VIAL IVP SCH ×2 (08:07→17:52)
[2018-05-20 08:12] LABS: Basophils # 0.1 K/mcL (0.0-0.2); Basophils % 0.5 %; Eosinophils # 0.6 K/mcL (0.0-0.6); Hematocrit 38.8 % (35.3-44.9); Hemoglobin 12.1 g/dL (11.5-15.4); Immature Granulocytes % 0.3 % (0-4); Lymphocytes # 3.4 K/mcL (0.6-4.6); Lymphocytes % 29.2 %; Mean Corpuscular HGB Conc 31.2 g/dL (31.6-35.5); Mean Corpuscular Hemoglobin 26.4 pg (28.0-33.3); Mean Corpuscular Volume 84.5 fL (83.0-100.0); Mean Platelet Volume 10.8 fL (9.4-12.4); Monocytes # 0.7 K/mcL (0.0-1.3); Monocytes % 6.4 %; Neutrophils # 6.7 K/mcL (1.6-8.9); Platelet Count 238 K/mcL (140-400); Red Blood Count 4.59 M/mcL (3.82-4.97); Red Cell Distribution Width 15.5 % (11.5-14.5); Segmented Neutrophils % 58.6 %
[2018-05-20 09:31] LABS: BUN/Creatinine Ratio 25 (6-26); Blood Urea Nitrogen 14 mg/dL (6-20); Calcium 8.6 mg/dL (8.6-10.3); Carbon Dioxide 30 mEq/L (23-29); Chloride 106 mEq/L (98-107); Glucose 86 mg/dL (70-105); Osmolality,Calculated 290 (280-300); Potassium 3.3 mEq/L (3.5-5.1); Sodium 140 mEq/L (136-145); eGFR For Non-African Americans > 60 (> 60)
[2018-05-20] MEDS: Famotidine 20 MG TABLET PO PRN (19:30)
[2018-05-21] MEDS: methylPREDNISolone 125 MG/2 ML VIAL IVP SCH ×2 (00:08→07:47)
[2018-05-21] MEDS: Ipratropium/Albuterol Neb 3 ML IH SCH ×3 (03:41→16:38)
[2018-05-21] MEDS: *HR* Heparin 5,000 UNIT/ML VIAL SQ SCH (04:56)
[2018-05-21 06:25] LABS: Basophils % 0.1 %; Hematocrit 41.8 % (35.3-44.9); Hemoglobin 13.3 g/dL (11.5-15.4); Immature Granulocytes % 0.8 % (0-4); Lymphocytes # 1.5 K/mcL (0.6-4.6); Lymphocytes % 10.4 %; Mean Corpuscular HGB Conc 31.8 g/dL (31.6-35.5); Mean Corpuscular Volume 84.8 fL (83.0-100.0); Mean Platelet Volume 11.2 fL (9.4-12.4); Monocytes # 0.5 K/mcL (0.0-1.3); Monocytes % 3.3 %; Neutrophils # 12.4 K/mcL (1.6-8.9); Platelet Count 281 K/mcL (140-400); Red Blood Count 4.93 M/mcL (3.82-4.97); Segmented Neutrophils % 85.4 %
[2018-05-21 06:43] LABS: BUN/Creatinine Ratio 30 (6-26); Blood Urea Nitrogen 16 mg/dL (6-20); Calcium 9.3 mg/dL (8.6-10.3); Carbon Dioxide 26 mEq/L (23-29); Chloride 107 mEq/L (98-107); Glucose 130 mg/dL (70-105); Osmolality,Calculated 291 (280-300); Potassium 3.9 mEq/L (3.5-5.1); Sodium 139 mEq/L (136-145); eGFR For Non-African Americans > 60 (> 60)
[2018-05-21] MEDS: Azithromycin 500 MG in D5% in Water 250 ML IVPB SCH (07:47)
--- NOTE | 2018-05-21 15:26 | Discharge Summary ---
- NOTES TO OUTPATIENT PROVIDER Notes to Outpatient Provider: none Date of Encounter: 05/21/18 Time of Encounter: 11:00 - Discharge Diagnosis (1) Asthma exacerbation Priority: Primary Status: Acute Qualifiers: Asthma severity: moderate Asthma persistence: unspecified Qualified Code( s): J45.901 - Unspecified asthma with (acute) exacerbation (2) Acute respiratory failure with hypoxia Priority: Primary Status: Acute (3) Bronchitis Priority: Secondary Status: Acute (4) Hypokalemia Priority: Secondary Status: Acute (5) BARON on CPAP Priority: Secondary Status: Chronic (6) Morbid obesity with BMI of 45.0-49.9, adult Priority: Secondary Status: Chronic Hospital course: Patient is a 23-year-old female with past medical history significant for asthma and BARON who presented to the ER due to shortness of breath. In the ER, patient was found to have acute hypoxic respiratory failure secondary to asthma exacerbation and was admitted to medical surgical floor for further management. During patients hospital stay, she was treated with IV Solu-Medrol in addition to IV azithromycin and schedule dual nebs. As result, patients shortness of breath resolved and she was able to be weaned off supplemental oxygenation. Patient will be discharged to continue a 5 day course of prednisone in addition to azithromycin and to follow-up with her primary care physician. - Time Spent with Patient Total time spent providing and/or coordinating discharge services: Less than 30 minutes - Discharge Medications Prescriptions: Azithromycin [Zithromax] 500 mg PO Q24H #10 tablet predniSONE [PredniSONE] 40 mg PO DAILY 5 Days #10 tablet Home Medications: Albuterol Sulfate [Ventolin Hfa] 2 puff IH Q4H PRN 10/23/15 [History] Fluticasone Propionate [Flovent Hfa] 1 puff IH BID 10/23/15 [History] Ranitidine HCl [Acid Food Service Helper] 150 mg PO HS PRN 07/22/17 [History] Albuterol Sulfate [Proair Hfa] 2 puff IH QID 30 Days #1 inh 05/17/18 [Rx] Azithromycin [Zithromax] 500 mg PO Q24H #10 tablet 05/21/18 [Rx] predniSONE [PredniSONE] 40 mg PO DAILY 5 Days #10 tablet 05/21/18 [Rx] Allergies/Adverse Reactions: 3 Allergy/AdvReac Type Severity Reaction Status Date / Time No Known Allergies Allergy Verified 05/17/18 12:55 Date of admission: 05/19/18 19:52 Primary care physician: Mallory Matos CNP - Constitutional Vitals: Temp Pulse Resp BP Pulse Ox 98.4 F 110 18 147/79 90 05/21/18 12:00 05/21/18 12:00 05/21/18 12:00 05/21/18 12:00 05/21/18 12:00 General appearance: Present: cooperative, A&O X 3, pleasant, no acute distress, answers questions appropriately Exam: Gen.: Nonacute distress, alert and oriented 3 ENT: Mucosal membranes moist Respiratory: Scant bilateral expiratory wheezes Cardiovascular: Normal S1 and S2 regular rate rhythm no murmurs rubs or gallops - Patient Status Disposition: Home, Self-Care Condition: Fair - Discharge Instructions Instructions: Prednisone (By mouth), Azithromycin (By mouth), Asthma (GEN), Acute Bronchitis (GEN) Follow Up With: Mallory Matos CNP [Primary Care Provider] - 05/25/18 10:00 am (Please f/u in 3-5 days )
[2018-05-21 16:47] VITALS: BP 147/79
[2018-05-22] MEDS ORDERED: Azithromycin 250 MG TABLET PO SCH (08:00)
== END 2018-05-21 17:00 | disposition home or self-care (01) | DRG 202 ==
LOC: EMEROOARM 19:59 → 2ANU 19:59 → SUATTDRO 05-18 05:00 → 2ANU 05-18 05:40
PROVIDERS: ADMIT Family Medicine; ATTEND Hospitalist